=== PATIENT | female | born 1985 | race African-American/Black ===

== ENCOUNTER 2018-07-19 12:22 | Inpatient (IN) | payer OTHER ==
[2018-07-19 13:26] VITALS: BMI 36.5
--- NOTE | 2018-07-19 16:05 | HP ---
Admission ROS [facility] - [facility] Chief Complaint: i am here for rehab from heroin abused Allergies/Adverse Reactions: Allergies Allergy/AdvReac Type Severity Reaction Status Date / Time shellfish derived Allergy Severe Difficulty Verified 07/19/18 13:42 Breathing History of Present Illness: this 32 years old female with heroin abused,mmtp 40 mgs/day,last medicted today, history of htn history of schizoaffective disorder,ptsd,anxiety attempted suicidal,cutter 07/18/18 yesterday,seen in [place] last night nicotine dependence no significant of sobriety Exam Limitations: No Limitations - Ebola screening Have you traveled outside of the country in the last 21 days: No Have you had contact with anyone from an Ebola affected area: No Have you been sick,other than usual withdrawal symptoms: No Do you have a fever: No - Review of Systems Constitutional: No Symptoms Reported EENT: reports: No Symptoms Reported Respiratory: reports: No Symptoms reported Cardiac: reports: No Symptoms Reported GI: reports: No Symptoms Reported : reports: No Symptoms Reported Musculoskeletal: reports: No Symptoms Reported Neuro: reports: No Symptoms reported Endocrine: reports: No Symptoms Reported Hematology: reports: No Symptoms Reported Psychiatric: reports: No Sypmtoms Reported, Judgement Intact, Mood/Affect Appropiate, Orientated x3 Patient History - Patient Medical History Hx Asthma: No Hx Chronic Obstructive Pulmonary Disease (COPD): No Hx Cardiac Disorders: No Hx Hypertension: Yes (non compliance) Hx Seizures: Yes (09/2016) Hx Diabetes: No Hx Gastrointestinal Disorders: No Hx Genitourinary Disorders: No Hx Sexually Transmitted Disorders: No Hx Renal Disease (ESRD): No Hx Thyroid Disease: No Hx Human Immunodeficiency Virus (HIV): No (04/06 negative) Hx Hepatitis C: No Hx Depression: Yes Hx Suicide Attempt: Yes (07/18/2018 [facility]) Hx Schizophrenia: Yes Other Medical History: no suicidal,no homicidal - Patient Surgical History Past Surgical History: No Hx Neurologic Surgery: No Hx Cataract Extraction: No Hx Cardiac Surgery: No Hx Lung Surgery: No Hx Breast Surgery: No Hx Breast Biopsy: No Hx Abdominal Surgery: No Hx Appendectomy: No Hx Cholecystectomy: No Hx Genitourinary Surgery: No Hx Section: No Hx Orthopedic Surgery: No Anesthesia Reaction: No - PPD History Previous Implant?: Yes Documented Results: Negative w/o proof Implanted On Prior [facility] Admission?: No PPD to be Administered?: Yes - Reproductive History Patient is a Female of Child Bearing Age (11 -55 yrs old): Yes Last Menstrual Period: 07/11/18 Patient : No - Smoking Cessation Smoking history: Current every day smoker Have you smoked in the past 12 months: Yes Aproximately how many cigarettes per day: 10 Cigars Per Day: 0 Hx Chewing Tobacco Use: Yes (09/2017) Initiated information on smoking cessation: Yes 'Breaking Loose' booklet given: 07/19/18 - Substance & Tx. History Hx Alcohol Use: No Hx Substance Use: Yes Substance Use Type: Heroin Hx Substance Use Treatment: Yes (11/07) - Substances Abused Heroin Route: Inhalation Frequency: Daily Amount used: $60-$80 Age of first use: 29 Date of Last Use: 07/18/18 Family Disease History - Family Disease History Family Disease History: Other: Father (dsa,sober), Mother (dsa) Admission Physical Exam [facility] - Vital Signs Vital Signs: Vital Signs - 24 hr 07/19/18 13:24 Temperature 96.5 F L Pulse Rate 108 H Respiratory 20 Rate Blood Pressure 121/77 - Physical General Appearance: Yes: Within Normal Limits HEENTM: Yes: Normal ENT Inspection, TEENA, Pharynx Normal Respiratory: Yes: Lungs Clear, Normal Breath Sounds, No Respiratory Distress Neck: Yes: Within Normal Limits, Supple, Trachea in good position Breast: Yes: Within Normal Limits Cardiology: Yes: Within Normal Limits, Regular Rhythm, Regular Rate, S1, S2 Abdominal: Yes: Within Normal Limits, Normal Bowel Sounds, Non Tender, Flat, Soft Genitourinary: Yes: Within Normal Limits Back: Yes: Within Normal Limits Musculoskeletal: Yes: Within Normal Limits Extremities: Yes: Within Normal Limits Neurological: Yes: Within Normal Limits Integumentary: Yes: Within Normal Limits Lymphatic: Yes: Within Normal Limits - Diagnostic (1) Heroin abuse Current Visit: Yes Status: Acute (2) Methadone maintenance therapy patient Current Visit: Yes Status: Acute (3) Nicotine dependence Current Visit: Yes Status: Acute (4) Bipolar disorder Current Visit: Yes Status: Acute (5) Schizoaffective disorder Current Visit: Yes Status: Acute Cleared for Admission [facility] - Detox or Rehab Claeared for Rehab Admission: Yes (seenby psychiatrist) [facility] Breath Alcohol Content Breath Alcohol Content: 0 Urine Pregancy Test - Result Urine Test Results: Negative- NO Line Present Urine Drug Screen - Results Drug Screen Negative: No Urine Drug Screen Results: BZO-Benzodiazepines, MTD-Methadone, FEN-Fentanyl Inpatient Rehab Admission - Initial Determination Are CD services needed?: Yes Free of communicable disease: Yes Not in need of hospitalization: Yes - Rehab Admission Criteria Previous failed treatment: Yes Poor recovery environment: Yes Comorbidities: Yes Lacks judgement: No Patient is meeting Inpatient Rehab admission criteria:: Yes
[2018-07-19] MEDS ORDERED: LOPERAMIDE HCL 2 MG CAPSULE PO PRN (16:20)
[2018-07-19] MEDS ORDERED: ACETAMINOPHEN 325 MG TABLET (FP) PO PRN (16:20)
[2018-07-19] MEDS ORDERED: guaiFENesin/D-METHORPHAN HB 10 ML UNIT-DOSE CUPS PO PRN (16:20)
[2018-07-19] MEDS ORDERED: IBUPROFEN 400 MG TABLET (FP) PO PRN (16:20)
[2018-07-19] MEDS ORDERED: MENTHOL/PHENOL 1 EACH UD MM PRN (16:20)
[2018-07-19] MEDS ORDERED: hydrOXYzine PAMOATE 25 MG CAPSULE (FP) PO PRN (16:20)
[2018-07-19] MEDS ORDERED: P-EPHED 60MG/TRIPROLIDI 2.5MG TABLET PO PRN (16:20)
[2018-07-19] MEDS ORDERED: MAGNESIUM CITRATE 300 ML BOTTLE PO PRN (16:20)
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
[2018-07-19] MEDS ORDERED: hydrOXYzine PAMOATE 25 MG CAPSULE (FP) PO SCH (16:45)
[2018-07-19] MEDS ORDERED: hydrOXYzine PAMOATE 50 MG CAPSULE (FP) PO SCH (17:03)
[2018-07-19] MEDS ORDERED: TUBERCULIN PPD 5 TU/0.1ML VIAL ID ONE ×2 (17:47→23:02)
[2018-07-19] MEDS: NICOTINE 21 MG/24 HOURS TOPICAL PATCH TD SCH (18:25)
[2018-07-19] MEDS: hydrOXYzine PAMOATE 50 MG CAPSULE (FP) PO PRN (18:26)
[2018-07-19] MEDS: FERROUS SO4 325 MG TABLET (FP) PO SCH (18:26)
[2018-07-19] MEDS: risperiDONE 1 MG TABLET (FP) PO SCH (21:28)
[2018-07-19] MEDS: QUEtiapine FUMARATE 100 MG TABLET (FP) PO SCH (21:28)
[2018-07-19] MEDS: THIAMINE HCL 100 MG TABLET (FP) PO SCH (21:28)
[2018-07-19] MEDS: cloNIDine HCL 0.1 MG TABLET PO SCH (21:29)
[2018-07-19] MEDS: MELATONIN 5 MG TABLETS PO PRN (21:30)
[2018-07-19] MEDS ORDERED: PT OWN MED DRAWER 7, Y5N ONE (23:02)
[2018-07-20 01:28] LABS: URINE APPEARANCE CLEAR; URINE BILIRUBIN NEGATIVE (<2.0 mg/dL); URINE COLOR LTYELLOW; URINE GLUCOSE (UA) NEGATIVE (NEGATIVE); URINE KETONE NEGATIVE (NEGATIVE); URINE LEUK ESTERASE 1+ (NEGATIVE); URINE NITRITE NEGATIVE (NEGATIVE); URINE PROTEIN NEGATIVE (NEGATIVE); URINE UROBILINOGEN NEGATIVE mg/dL (0.2-1.0)
[2018-07-20 01:44] LABS: EPI CELLS RARE /HPF (FEW); URINE BACTERIA RARE /hpf (NONE SEEN); URINE MUCUS RARE
[2018-07-20] MEDS: cloNIDine HCL 0.1 MG TABLET PO SCH ×3 (06:33→21:13)
[2018-07-20] MEDS: METHADONE HCL 40 MG DISPERSABLE TABLET PO SCH (07:42)
[2018-07-20] MEDS: FERROUS SO4 325 MG TABLET (FP) PO SCH ×3 (07:43→17:45)
[2018-07-20] MEDS: risperiDONE 1 MG TABLET (FP) PO SCH ×2 (10:01→21:13)
[2018-07-20] MEDS: NICOTINE 21 MG/24 HOURS TOPICAL PATCH TD SCH (10:01)
[2018-07-20] MEDS: PRENATAL VITAMINS W/ FOLIC ACID TABLET (FP) PO SCH (10:01)
[2018-07-20] MEDS ORDERED: diphenhydrAMINE HCL 50 MG CAPSULE PO PRN (10:46)
[2018-07-20] MEDS: MAG HYDROX/AL HYDROX/SIMETH 30 ML UNIT-DOSE CUP PO PRN ×2 (11:53→19:36)
--- NOTE | 2018-07-20 12:07 | EKG ---
Test Reason : Blood Pressure : / mmHG Vent. Rate : 096 BPM Atrial Rate : 096 BPM P-R Int : 166 ms QRS Dur : 074 ms QT Int : 368 ms P-R-T Axes : 049 006 055 degrees QTc Int : 464 ms NORMAL SINUS RHYTHM POSSIBLE LEFT ATRIAL ENLARGEMENT NONSPECIFIC T WAVE ABNORMALITY ABNORMAL ECG NO PREVIOUS ECGS AVAILABLE Confirmed by MIRANDA HULL MD ([id number]) on 07/20/2018 12:07:12 PM Referred By: Confirmed By:MIRANDA HULL MD
[2018-07-20 15:55] LABS: HEMATOCRIT 34.9 % (32.4-45.2); HEMOGLOBIN 10.5 GM/dL (10.7-15.3); MCH 21.3 pg (25.7-33.7); MEAN CELL VOLUME 71.1 fl (80-96); PLATELET COUNT 212 K/MM3 (134-434); RBC 4.91 M/mm3 (3.60-5.2); RDW 21.4 % (11.6-15.6); WHITE BLOOD COUNT 5.2 K/mm3 (4.0-10.0)
[2018-07-20 16:19] LABS: ALBUMIN 3.8 g/dl (3.4-5.0); ALK PHOS 68 U/L (45-117); ANION GAP 9 MMOL/L (8-16); BILIRUBIN,TOTAL 0.1 mg/dL (0.2-1); BLOOD UREA NITROGEN 12 mg/dL (7-18); CALCIUM 9.1 mg/dL (8.5-10.1); CHLORIDE 102 mmol/L (98-107); CO2 26 mmol/L (21-32); CREATININE 0.7 mg/dL (0.55-1.3); GLUCOSE,RANDOM 145 mg/dL (74-106); SGOT/AST 19 U/L (15-37); SGPT/ALT 25 U/L (13-61); SODIUM 137 mmol/L (136-145)
[2018-07-20 16:56] LABS: SICKLE CELL SCREEN NEGATIVE (NEGATIVE)
[2018-07-20] MEDS: QUEtiapine FUMARATE 100 MG TABLET (FP) PO SCH (21:13)
[2018-07-20] MEDS: THIAMINE HCL 100 MG TABLET (FP) PO SCH (21:13)
[2018-07-20] MEDS: hydrOXYzine PAMOATE 50 MG CAPSULE (FP) PO PRN (21:14)
[2018-07-21] MEDS: METHADONE HCL 40 MG DISPERSABLE TABLET PO SCH (06:11)
[2018-07-21] MEDS: cloNIDine HCL 0.1 MG TABLET PO SCH ×3 (06:12→21:13)
[2018-07-21] MEDS: FERROUS SO4 325 MG TABLET (FP) PO SCH ×3 (07:50→17:30)
[2018-07-21] MEDS: NICOTINE 21 MG/24 HOURS TOPICAL PATCH TD SCH (09:45)
[2018-07-21] MEDS: PRENATAL VITAMINS W/ FOLIC ACID TABLET (FP) PO SCH (09:46)
[2018-07-21] MEDS: risperiDONE 1 MG TABLET (FP) PO SCH (09:46)
[2018-07-21] MEDS: MAGNESIUM HYDROX 2400MG/30ML ORAL SUSPENSION 30 ML CUP PO PRN (12:28)
[2018-07-21] MEDS ORDERED: HALOPERIDOL 5 MG TABLET (FP) PO ONE (13:46)
[2018-07-21] MEDS ORDERED: BENZTROPINE MESYLATE 1 MG TABLET (FP) PO ONE (13:46)
--- NOTE | 2018-07-21 15:12 | PN ---
Psychiatric Progress Note Vital Signs: Vital Signs Period Temp Pulse Resp BP Sys/Dhillon Pulse Ox Last 24 Hr 98.0 F 75-93 16-18 97-115/66-81 Date of Session: 07/21/18 Chief Complaint:: "i'm hearing voices." HPI: Patient was admitted to for opioid dependence. ROS: hypertension, seizures (09/2016) Current Medications: Active Medications Generic Name Dose Route Start Last Admin Trade Name Freq PRN Reason Stop Dose Admin Acetaminophen 650 mg 07/19/18 16:20 Tylenol - PO Q4H PRN FEVER Al Hydroxide/Mg Hydroxide 30 ml 07/19/18 16:20 07/20/18 19:36 Mylanta Oral Suspension - PO 30 ml Q6H PRN Administration DYSPEPSIA Clonidine 0.1 mg 07/19/18 22:00 07/21/18 14:00 Catapres - PO 0.1 mg TID ARON Administration Diphenhydramine HCl 50 mg 07/20/18 10:46 Benadryl - PO HS PRN INSOMNIA Eucalyptus/Menthol/Phenol/Sorbitol 1 each 07/19/18 16:20 Cepastat Lozenge - MM Q4H PRN SORE THROAT Ferrous Sulfate 325 mg 07/19/18 17:30 07/21/18 11:49 Feosol - PO 325 mg TIDCM ARON Administration Guaifenesin 10 ml 07/19/18 16:20 Robitussin Dm - PO Q6H PRN COUGH Hydroxyzine Pamoate 50 mg 07/19/18 17:22 07/20/18 21:14 Vistaril - PO 50 mg Q4H PRN Administration AGITATION/ANXIETY Ibuprofen 400 mg 07/19/18 16:20 Motrin - PO Q6H PRN Pain level 4-6 Loperamide HCl 4 mg 07/19/18 16:20 Imodium - PO Q6H PRN DIARRHEA Magnesium Citrate 300 ml 07/19/18 16:20 Citroma - PO Q48H PRN CONSTIPATION Magnesium Hydroxide 30 ml 07/19/18 16:20 07/21/18 12:28 Milk Of Magnesia - PO 30 ml DAILY PRN Administration CONSTIPATION Melatonin 5 mg 07/19/18 22:00 07/19/18 21:30 Melatonin PO 5 mg HS PRN Administration INSOMNIA Methadone HCl 40 mg 07/20/18 07:15 07/21/18 06:11 Dolophine - PO 40 mg DAILY@0600 ARON Administration Nicotine 21 mg 07/19/18 16:30 07/21/18 09:45 Nicoderm Patch - TD 21 mg DAILY ARON Administration Multivit/Folic Acid/Iron 1 tab 07/20/18 10:00 07/21/18 09:46 Vitamins (Sjr) - PO 1 tab DAILY ARON Administration Pseudoephedrine/Triprolidine 1 combo 07/19/18 16:20 Actifed - PO TID PRN NASAL CONGESTION Quetiapine Fumarate 100 mg 07/19/18 22:00 07/20/18 21:13 Seroquel - PO 100 mg HS ARON Administration Risperidone 1 mg 07/19/18 22:00 07/21/18 09:46 Risperdal - PO 1 mg BID ARON Administration Thiamine HCl 100 mg 07/19/18 22:00 07/20/18 21:13 Vitamin B1 - PO 100 mg HS ARON Administration Medication(s) Change(s): Yes. one time dose of haldol 5mg + cogentin 1mg ordered. Will increase risperdal dose to 2mg BID and will add cogentin 1mg qhs. Current Side Effect: No Lab tests ordered: No Lab tests reviewed: Yes Provider note:: Patient reports auditory hallucinations this morning which intensified into the afternoon. Patient stated, "the voices are talking to each other. I don't know what they are saying." Patient denies command auditory halluincations. No prn's available. One time dose of haldol 5mg and cogentin 1mg ordered. Medication effective. Will also increase risperdal 1mg BID to 2mg BID and add cogentin 1mg qhs. Patient in agreement with plan. Patient with a history of command auditory hallucinations. She recently had a suicide attempt on Jul 18, 2018 via overdose and attempting to cut herself. Both attempts were stopped by relatives and 911 was called. Patient currently denies suicidal and homicidal ideation. Total face to face time:: 35 Mental Status Exam - Mental Status Exam Alert and Oriented to: Time, Place, Person Cognitive Function: Good Patient Appearance: Well Groomed Mood: Euthymic Affect: Mood Congruent Patient Behavior: Appropriate, Cooperative Speech Pattern: Appropriate Voice Loudness: Normal Thought Process: Intact, Goal Oriented Hallucinations: Auditory (Voices talking to each other.) Suicidal Ideation: Denies Homicidal Ideation: Denies Insight/Judgement: Poor Sleep: Fair Appetite: Good, Fair Muscle strength/Tone: Normal Gait/Station: Normal Psychiatric Treatment Plan - Problem List (1) Opioid dependence Current Visit: Yes (2) Methadone maintenance therapy patient Current Visit: Yes (3) Schizoaffective disorder Current Visit: Yes (4) Nicotine dependence Current Visit: Yes (5) PTSD (post-traumatic stress disorder) Current Visit: Yes
[2018-07-21] MEDS: hydrOXYzine PAMOATE 50 MG CAPSULE (FP) PO PRN (18:00)
[2018-07-21] MEDS: MAG HYDROX/AL HYDROX/SIMETH 30 ML UNIT-DOSE CUP PO PRN (18:46)
[2018-07-21] MEDS ORDERED: PT OWN MED DRAWER 7, Y5N ONE (21:12)
[2018-07-21] MEDS: THIAMINE HCL 100 MG TABLET (FP) PO SCH (21:13)
[2018-07-21] MEDS: QUEtiapine FUMARATE 100 MG TABLET (FP) PO SCH (21:13)
[2018-07-21] MEDS: MELATONIN 5 MG TABLETS PO PRN (21:13)
[2018-07-21] MEDS: BENZTROPINE MESYLATE 1 MG TABLET (FP) PO SCH (21:15)
[2018-07-21] MEDS: risperiDONE 2 MG TABLET PO SCH (21:15)
[2018-07-22] MEDS: cloNIDine HCL 0.1 MG TABLET PO SCH ×3 (06:27→21:14)
[2018-07-22] MEDS: METHADONE HCL 40 MG DISPERSABLE TABLET PO SCH (06:27)
[2018-07-22] MEDS: FERROUS SO4 325 MG TABLET (FP) PO SCH ×3 (07:05→17:51)
[2018-07-22] MEDS: NICOTINE 21 MG/24 HOURS TOPICAL PATCH TD SCH (09:52)
[2018-07-22] MEDS: risperiDONE 2 MG TABLET PO SCH ×2 (09:52→21:12)
[2018-07-22] MEDS: PRENATAL VITAMINS W/ FOLIC ACID TABLET (FP) PO SCH (09:52)
[2018-07-22] MEDS ORDERED: PT OWN MED DRAWER 7, Y5N ONE (11:29)
[2018-07-22] MEDS: MAG HYDROX/AL HYDROX/SIMETH 30 ML UNIT-DOSE CUP PO PRN (14:11)
[2018-07-22] MEDS: hydrOXYzine PAMOATE 50 MG CAPSULE (FP) PO PRN (14:21)
[2018-07-22] MEDS: HALOPERIDOL 5 MG TABLET (FP) PO PRN (17:50)
[2018-07-22] MEDS: QUEtiapine FUMARATE 100 MG TABLET (FP) PO SCH (21:12)
[2018-07-22] MEDS: MELATONIN 5 MG TABLETS PO PRN (21:12)
[2018-07-22] MEDS: BENZTROPINE MESYLATE 1 MG TABLET (FP) PO SCH (21:12)
[2018-07-22] MEDS: GABAPENTIN 300 MG CAPSULE (FP) PO SCH (21:15)
[2018-07-22] MEDS: THIAMINE HCL 100 MG TABLET (FP) PO SCH (21:16)
[2018-07-23] MEDS: cloNIDine HCL 0.1 MG TABLET PO SCH ×3 (06:44→22:28)
[2018-07-23] MEDS: METHADONE HCL 40 MG DISPERSABLE TABLET PO SCH (06:44)
[2018-07-23] MEDS: GABAPENTIN 300 MG CAPSULE (FP) PO SCH ×3 (06:45→21:04)
[2018-07-23] MEDS: HALOPERIDOL 5 MG TABLET (FP) PO PRN (06:46)
[2018-07-23] MEDS: FERROUS SO4 325 MG TABLET (FP) PO SCH ×3 (07:46→18:04)
[2018-07-23] MEDS ORDERED: PT OWN MED DRAWER 7, Y5N ONE (08:10)
[2018-07-23] MEDS: NICOTINE 21 MG/24 HOURS TOPICAL PATCH TD SCH (09:47)
[2018-07-23] MEDS: risperiDONE 2 MG TABLET PO SCH (09:48)
[2018-07-23] MEDS: PRENATAL VITAMINS W/ FOLIC ACID TABLET (FP) PO SCH (09:48)
[2018-07-23] MEDS: hydrOXYzine PAMOATE 50 MG CAPSULE (FP) PO PRN ×3 (11:25→21:45)
[2018-07-23] MEDS: MAG HYDROX/AL HYDROX/SIMETH 30 ML UNIT-DOSE CUP PO PRN (13:05)
--- NOTE | 2018-07-23 17:01 | PN ---
Psychiatric Progress Note Vital Signs: Vital Signs Period Temp Pulse Resp BP Sys/Dhillon Pulse Ox Last 24 Hr 97.9 F 76-101 16-18 96-108/60-77 Date of Session: 07/23/18 Chief Complaint:: " I was hearing voices this morning ". HPI: Called to re-evaluate this patient, admitted to [address] for rehabilitation to address opioid dependence, because of complaint of auditory hallucinations (voices conversing). Patient is diagnosed with Schizoaffective Disorder. Recently discharged from [facility] ([facility] ROS: Alert and fully oriented. Cooperative. Ambulatory. No somatic complaints offered. Current Medications: Active Medications Generic Name Dose Route Start Last Admin Trade Name Freq PRN Reason Stop Dose Admin Acetaminophen 650 mg 07/19/18 16:20 Tylenol - PO Q4H PRN FEVER Al Hydroxide/Mg Hydroxide 30 ml 07/19/18 16:20 07/23/18 13:05 Mylanta Oral Suspension - PO 30 ml Q6H PRN Administration DYSPEPSIA Benztropine Mesylate 1 mg 07/21/18 22:00 07/22/18 21:12 Cogentin - PO 1 mg HS ARON Administration Clonidine 0.1 mg 07/19/18 22:00 07/23/18 13:05 Catapres - PO 0.1 mg TID ARON Administration Diphenhydramine HCl 50 mg 07/20/18 10:46 07/22/18 21:14 Benadryl - PO 50 mg HS PRN Administration INSOMNIA Eucalyptus/Menthol/Phenol/Sorbitol 1 each 07/19/18 16:20 Cepastat Lozenge - MM Q4H PRN SORE THROAT Ferrous Sulfate 325 mg 07/19/18 17:30 07/23/18 11:25 Feosol - PO 325 mg TIDCM ARON Administration Gabapentin 300 mg 07/22/18 22:00 07/23/18 13:05 Neurontin - PO 300 mg TID ARON Administration Guaifenesin 10 ml 07/19/18 16:20 Robitussin Dm - PO Q6H PRN COUGH Haloperidol 5 mg 07/22/18 17:01 07/23/18 06:46 Haldol - PO 5 mg BID PRN Administration AGITATION Hydroxyzine Pamoate 50 mg 07/19/18 17:22 07/23/18 11:25 Vistaril - PO 50 mg Q4H PRN Administration AGITATION/ANXIETY Ibuprofen 400 mg 07/19/18 16:20 Motrin - PO Q6H PRN Pain level 4-6 Loperamide HCl 4 mg 07/19/18 16:20 Imodium - PO Q6H PRN DIARRHEA Magnesium Citrate 300 ml 07/19/18 16:20 Citroma - PO Q48H PRN CONSTIPATION Magnesium Hydroxide 30 ml 07/19/18 16:20 07/21/18 12:28 Milk Of Magnesia - PO 30 ml DAILY PRN Administration CONSTIPATION Melatonin 5 mg 07/19/18 22:00 07/22/18 21:12 Melatonin PO 5 mg HS PRN Administration INSOMNIA Methadone HCl 40 mg 07/20/18 07:15 07/23/18 06:44 Dolophine - PO 40 mg DAILY@0600 ARON Administration Nicotine 21 mg 07/19/18 16:30 07/23/18 09:47 Nicoderm Patch - TD 21 mg DAILY ARON Administration Multivit/Folic Acid/Iron 1 tab 07/20/18 10:00 07/23/18 09:48 Vitamins (Sjr) - PO 1 tab DAILY ARON Administration Pseudoephedrine/Triprolidine 1 combo 07/19/18 16:20 Actifed - PO TID PRN NASAL CONGESTION Quetiapine Fumarate 100 mg 07/19/18 22:00 07/22/18 21:12 Seroquel - PO 100 mg HS ARON Administration Risperidone 2 mg 07/21/18 22:00 07/23/18 09:48 Risperdal - PO 2 mg BID ARON Administration Thiamine HCl 100 mg 07/19/18 22:00 07/22/18 21:16 Vitamin B1 - PO 100 mg HS ARON Administration Medication(s) Change(s): Patient indicates her preference for haloperidol. She insists that " this is the medication that helps me with the voices ". Haldol 5 mg po + cogentin 0.5 mg po (one dose) ordered. Risperdal is discontinued. Seroquel is reduced to 50 mg/hs (patient declares that seroquel is effective for the management of her insomnia). Will continue with haldol 5 mg po tid. Side effects/benefits discussed with the patient. Made aware of risk of abnormal involuntary movements (akathisia, dystonia, tardive dyskinesia) and neuroleptic malignant syndrome. Patient endorses history of adequate response to haloperidol + good tolerability. Anticholinergic adverse effects are also discussed. Ms Tran is in agreement with this plan of care. Consent (verbal) given. Will follow. Current Side Effect: No Lab tests ordered: No Lab tests reviewed: Yes Provider note:: Chart reviewed. psychotherapist counselor Sarah note : appreciated. Patient is interviewed. Ms Tran reports intermittent auditory halllucinations (derogatory voices without violent content) since her admission to [facility]. Denies paranoid ideas or suicidal ideation, intent or plan. Patient is visible on the unit. Ambulatory, cooperative with interviewer. Coherent and goal-directed. Eager to take medications. Treatment plan is discussed with the patient. Refer to medications section for details. Ms Tran does NOT meet the criteria for admission to an inpatient psychiatric unit. Antipsychotic medication is adjusted as clinically indicated and the patient may remain at [facility] for rehabilitation. Discussed with nurse on duty. Total face to face time:: 35 Mental Status Exam - Mental Status Exam Alert and Oriented to: Time, Place, Person Cognitive Function: Good Patient Appearance: Well Groomed (obese) Mood: Anxious, Apprehensive Affect: Appropriate, Normal Range Patient Behavior: Cooperative Speech Pattern: Clear, Appropriate Voice Loudness: Normal Thought Process: Goal Oriented Thought Disorder: Not Present Hallucinations: Auditory (voices berating her) Suicidal Ideation: Denies Homicidal Ideation: Denies Insight/Judgement: Fair Sleep: Well (on seroquel) Appetite: Good Muscle strength/Tone: Normal Gait/Station: Normal Psychiatric Treatment Plan - Problem List (1) Schizoaffective disorder Current Visit: Yes Comment: . (2) Opioid dependence on agonist therapy Current Visit: Yes Comment: . (3) Opioid dependence Current Visit: Yes Comment: . (4) Nicotine dependence Current Visit: Yes Comment: . (5) Insomnia Current Visit: Yes Comment: .
[2018-07-23] MEDS ORDERED: HALOPERIDOL 5 MG TABLET (FP) PO ONE (17:13)
[2018-07-23] MEDS ORDERED: BENZTROPINE MESYLATE 0.5 MG TABLET (FP) PO ONE (17:14)
[2018-07-23 19:24] LABS: URINE APPEARANCE CLEAR; URINE BILIRUBIN NEGATIVE (<2.0 mg/dL); URINE COLOR YELLOW; URINE GLUCOSE (UA) NEGATIVE (NEGATIVE); URINE KETONE NEGATIVE (NEGATIVE); URINE LEUK ESTERASE NEGATIVE (NEGATIVE); URINE NITRITE NEGATIVE (NEGATIVE); URINE PROTEIN NEGATIVE (NEGATIVE); URINE UROBILINOGEN NEGATIVE mg/dL (0.2-1.0)
[2018-07-23 19:33] LABS: EPI CELLS RARE /HPF (FEW); URINE MUCUS RARE
[2018-07-23] MEDS: THIAMINE HCL 100 MG TABLET (FP) PO SCH (21:05)
[2018-07-23] MEDS: BENZTROPINE MESYLATE 1 MG TABLET (FP) PO SCH (21:05)
[2018-07-23] MEDS: QUEtiapine FUMARATE 50 MG TABLET PO SCH (21:05)
[2018-07-23] MEDS ORDERED: HALOPERIDOL 5 MG TABLET (FP) PO SCH (22:00)
[2018-07-24] MEDS: METHADONE HCL 40 MG DISPERSABLE TABLET PO SCH (06:22)
[2018-07-24] MEDS: cloNIDine HCL 0.1 MG TABLET PO SCH ×3 (06:22→22:59)
[2018-07-24] MEDS: GABAPENTIN 300 MG CAPSULE (FP) PO SCH ×3 (06:22→21:05)
[2018-07-24] MEDS: FERROUS SO4 325 MG TABLET (FP) PO SCH ×3 (07:00→18:05)
[2018-07-24] MEDS: NICOTINE 21 MG/24 HOURS TOPICAL PATCH TD SCH (09:41)
[2018-07-24] MEDS: hydrOXYzine PAMOATE 50 MG CAPSULE (FP) PO PRN ×2 (09:42→16:57)
[2018-07-24] MEDS: PRENATAL VITAMINS W/ FOLIC ACID TABLET (FP) PO SCH (09:42)
[2018-07-24] MEDS: MAG HYDROX/AL HYDROX/SIMETH 30 ML UNIT-DOSE CUP PO PRN ×2 (09:43→16:57)
[2018-07-24] MEDS: BENZTROPINE MESYLATE 1 MG TABLET (FP) PO SCH ×2 (09:45→21:05)
[2018-07-24] MEDS ORDERED: BENZTROPINE MESYLATE 0.5 MG TABLET (FP) PO SCH (10:00)
[2018-07-24] MEDS ORDERED: PT OWN MED DRAWER 7, Y5N ONE ×2 (10:12→12:10)
[2018-07-24] MEDS: HALOPERIDOL 5 MG TABLET (FP) PO SCH ×2 (13:01→21:06)
[2018-07-24] MEDS: THIAMINE HCL 100 MG TABLET (FP) PO SCH (21:05)
[2018-07-24] MEDS: QUEtiapine FUMARATE 50 MG TABLET PO SCH (21:05)
[2018-07-25] MEDS: METHADONE HCL 40 MG DISPERSABLE TABLET PO SCH (06:05)
[2018-07-25] MEDS: HALOPERIDOL 5 MG TABLET (FP) PO SCH ×3 (06:06→21:13)
[2018-07-25] MEDS: cloNIDine HCL 0.1 MG TABLET PO SCH ×3 (06:06→21:13)
[2018-07-25] MEDS: GABAPENTIN 300 MG CAPSULE (FP) PO SCH ×3 (06:06→21:13)
[2018-07-25] MEDS: FERROUS SO4 325 MG TABLET (FP) PO SCH ×3 (07:33→17:40)
[2018-07-25] MEDS: MAG HYDROX/AL HYDROX/SIMETH 30 ML UNIT-DOSE CUP PO PRN ×2 (07:55→14:29)
[2018-07-25] MEDS: NICOTINE 21 MG/24 HOURS TOPICAL PATCH TD SCH (09:40)
[2018-07-25] MEDS: PRENATAL VITAMINS W/ FOLIC ACID TABLET (FP) PO SCH (09:40)
[2018-07-25] MEDS: BENZTROPINE MESYLATE 1 MG TABLET (FP) PO SCH ×2 (09:40→21:13)
[2018-07-25] MEDS: hydrOXYzine PAMOATE 50 MG CAPSULE (FP) PO PRN ×2 (09:42→13:48)
--- NOTE | 2018-07-25 16:59 | PN ---
[facility] Progress Note Note: Patient reports that she is not able to fall asleep since her Seroquel dose has been decreased.Properties of Seroquel has been discussed with the patient including side effects,benefits,dose adjustment.Seroquel will be adjusted to 100 mg p hs.
[2018-07-25] MEDS: THIAMINE HCL 100 MG TABLET (FP) PO SCH (21:13)
[2018-07-25] MEDS: QUEtiapine FUMARATE 100 MG TABLET (FP) PO SCH (21:15)
[2018-07-26] MEDS: HALOPERIDOL 5 MG TABLET (FP) PO SCH ×3 (05:59→21:27)
[2018-07-26] MEDS: cloNIDine HCL 0.1 MG TABLET PO SCH ×3 (05:59→21:27)
[2018-07-26] MEDS: GABAPENTIN 300 MG CAPSULE (FP) PO SCH ×3 (05:59→21:27)
[2018-07-26] MEDS: METHADONE HCL 40 MG DISPERSABLE TABLET PO SCH (06:00)
[2018-07-26] MEDS: FERROUS SO4 325 MG TABLET (FP) PO SCH ×3 (08:34→17:25)
[2018-07-26] MEDS: NICOTINE 21 MG/24 HOURS TOPICAL PATCH TD SCH (10:17)
[2018-07-26] MEDS: PRENATAL VITAMINS W/ FOLIC ACID TABLET (FP) PO SCH (10:17)
[2018-07-26] MEDS: BENZTROPINE MESYLATE 1 MG TABLET (FP) PO SCH ×2 (10:18→21:27)
[2018-07-26] MEDS: hydrOXYzine PAMOATE 50 MG CAPSULE (FP) PO PRN ×2 (10:20→18:53)
[2018-07-26] MEDS: MAG HYDROX/AL HYDROX/SIMETH 30 ML UNIT-DOSE CUP PO PRN ×2 (10:20→19:54)
[2018-07-26] MEDS: QUEtiapine FUMARATE 100 MG TABLET (FP) PO SCH (21:27)
[2018-07-26] MEDS: THIAMINE HCL 100 MG TABLET (FP) PO SCH (21:27)
[2018-07-27] MEDS: cloNIDine HCL 0.1 MG TABLET PO SCH ×3 (06:13→21:15)
[2018-07-27] MEDS: HALOPERIDOL 5 MG TABLET (FP) PO SCH ×3 (06:13→21:15)
[2018-07-27] MEDS: GABAPENTIN 300 MG CAPSULE (FP) PO SCH ×3 (06:13→21:15)
[2018-07-27] MEDS: METHADONE HCL 40 MG DISPERSABLE TABLET PO SCH (06:14)
[2018-07-27] MEDS: FERROUS SO4 325 MG TABLET (FP) PO SCH ×3 (07:31→17:14)
[2018-07-27] MEDS: PRENATAL VITAMINS W/ FOLIC ACID TABLET (FP) PO SCH (10:41)
[2018-07-27] MEDS: BENZTROPINE MESYLATE 1 MG TABLET (FP) PO SCH ×2 (10:42→21:15)
[2018-07-27] MEDS: NICOTINE 21 MG/24 HOURS TOPICAL PATCH TD SCH (10:42)
[2018-07-27] MEDS ORDERED: PT OWN MED DRAWER 7, Y5N ONE (10:48)
[2018-07-27] MEDS: MAG HYDROX/AL HYDROX/SIMETH 30 ML UNIT-DOSE CUP PO PRN ×2 (12:32→19:00)
[2018-07-27] MEDS: hydrOXYzine PAMOATE 50 MG CAPSULE (FP) PO PRN (15:01)
[2018-07-27] MEDS: THIAMINE HCL 100 MG TABLET (FP) PO SCH (21:15)
[2018-07-27] MEDS: QUEtiapine FUMARATE 100 MG TABLET (FP) PO SCH (21:15)
[2018-07-28] MEDS: GABAPENTIN 300 MG CAPSULE (FP) PO SCH ×3 (06:25→21:24)
[2018-07-28] MEDS: HALOPERIDOL 5 MG TABLET (FP) PO SCH ×3 (06:26→21:24)
[2018-07-28] MEDS: cloNIDine HCL 0.1 MG TABLET PO SCH ×3 (06:27→21:24)
[2018-07-28] MEDS: METHADONE HCL 40 MG DISPERSABLE TABLET PO SCH (06:27)
[2018-07-28] MEDS: MAG HYDROX/AL HYDROX/SIMETH 30 ML UNIT-DOSE CUP PO PRN (07:30)
[2018-07-28] MEDS: FERROUS SO4 325 MG TABLET (FP) PO SCH ×3 (07:31→17:25)
[2018-07-28] MEDS: PRENATAL VITAMINS W/ FOLIC ACID TABLET (FP) PO SCH (10:07)
[2018-07-28] MEDS: BENZTROPINE MESYLATE 1 MG TABLET (FP) PO SCH ×2 (10:07→21:24)
[2018-07-28] MEDS: NICOTINE 21 MG/24 HOURS TOPICAL PATCH TD SCH (10:07)
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
[2018-07-28] MEDS: PANTOPRAZOLE 40 MG TABLET (FP) PO SCH (13:05)
[2018-07-28] MEDS: QUEtiapine FUMARATE 100 MG TABLET (FP) PO SCH (21:24)
[2018-07-28] MEDS: THIAMINE HCL 100 MG TABLET (FP) PO SCH (21:24)
[2018-07-28] MEDS: MELATONIN 5 MG TABLETS PO PRN (21:25)
[2018-07-29] MEDS: METHADONE HCL 40 MG DISPERSABLE TABLET PO SCH (06:22)
[2018-07-29] MEDS: HALOPERIDOL 5 MG TABLET (FP) PO SCH ×3 (06:23→21:04)
[2018-07-29] MEDS: cloNIDine HCL 0.1 MG TABLET PO SCH ×3 (06:23→21:04)
[2018-07-29] MEDS: GABAPENTIN 300 MG CAPSULE (FP) PO SCH ×3 (06:23→21:04)
[2018-07-29] MEDS: FERROUS SO4 325 MG TABLET (FP) PO SCH ×3 (07:26→16:55)
[2018-07-29] MEDS: PRENATAL VITAMINS W/ FOLIC ACID TABLET (FP) PO SCH (09:34)
[2018-07-29] MEDS: PANTOPRAZOLE 40 MG TABLET (FP) PO SCH (09:34)
[2018-07-29] MEDS: NICOTINE 21 MG/24 HOURS TOPICAL PATCH TD SCH (09:35)
[2018-07-29] MEDS: BENZTROPINE MESYLATE 1 MG TABLET (FP) PO SCH ×2 (09:35→21:04)
--- NOTE | 2018-07-29 10:22 | PN ---
[facility] Progress Note Note: Pt states she has a "boil" under axilla and also skin change of breast area. Says she has a h/o of "boils" of axilla- was treated with antibiotics in the past Vital Signs - 24 hr 07/28/18 07/28/18 07/29/18 13:10 22:44 00:30 Temperature Pulse Rate 84 76 Respiratory 17 Rate Blood Pressure 100/70 105/73 07/29/18 07/29/18 03:30 06:46 Temperature 97.8 F Pulse Rate 100 H Respiratory 17 16 Rate Blood Pressure 103/64 PE- healed scar L axilla, small ~ 1cm palpable area under skin, no redness, swelling or edema breasts: r and L, small areas of hypopigmentation- chronically present- not new a/p: warm compresses to L axilla, no indication for antibiotics at the present time, Hypopigmentation- chronic- no need for treatment now- pt will f/u with PCP/derm at discharge
[2018-07-29] MEDS: hydrOXYzine PAMOATE 50 MG CAPSULE (FP) PO PRN ×2 (16:55→21:05)
[2018-07-29] MEDS: QUEtiapine FUMARATE 100 MG TABLET (FP) PO SCH (21:04)
[2018-07-29] MEDS: THIAMINE HCL 100 MG TABLET (FP) PO SCH (21:04)
[2018-07-30] MEDS: METHADONE HCL 40 MG DISPERSABLE TABLET PO SCH (06:29)
[2018-07-30] MEDS: cloNIDine HCL 0.1 MG TABLET PO SCH ×3 (06:29→21:09)
[2018-07-30] MEDS: HALOPERIDOL 5 MG TABLET (FP) PO SCH ×3 (06:29→21:09)
[2018-07-30] MEDS: GABAPENTIN 300 MG CAPSULE (FP) PO SCH ×3 (06:30→21:09)
[2018-07-30] MEDS: FERROUS SO4 325 MG TABLET (FP) PO SCH ×3 (07:07→17:35)
[2018-07-30] MEDS: PANTOPRAZOLE 40 MG TABLET (FP) PO SCH (10:07)
[2018-07-30] MEDS: PRENATAL VITAMINS W/ FOLIC ACID TABLET (FP) PO SCH (10:07)
[2018-07-30] MEDS: BENZTROPINE MESYLATE 1 MG TABLET (FP) PO SCH ×2 (10:07→21:09)
[2018-07-30] MEDS: NICOTINE 21 MG/24 HOURS TOPICAL PATCH TD SCH (10:07)
--- NOTE | 2018-07-30 13:27 | PN ---
[facility] Progress Note Note: PT C/O LEFT UPPER EYELID PAIN WITH SWELLING. Laboratory Tests 07/19/18 07/20/18 07/20/18 22:52 08:30 08:30 WBC 5.2 RBC 4.91 Hgb 10.5 L Hct 34.9 MCV 71.1 L MCH 21.3 L MCHC 30.0 L RDW 21.4 H Plt Count 212 MPV 12.0 H Sickle Cell Screen Negative Sodium 137 Potassium 4.0 Chloride 102 Carbon Dioxide 26 Anion Gap 9 BUN 12 Creatinine 0.7 Creat Clearance w eGFR > 60 POC Glucometer Random Glucose 145 H Calcium 9.1 Total Bilirubin 0.1 L AST 19 ALT 25 Alkaline Phosphatase 68 Total Protein 7.0 Albumin 3.8 Urine Color Ltyellow Urine Appearance Clear Urine pH 6.0 Ur Specific [place] 1.014 Urine Protein Negative Urine Glucose (UA) Negative Urine Ketones Negative Urine Blood Negative Urine Nitrite Negative Urine Bilirubin Negative Urine Urobilinogen Negative Ur Leukocyte Esterase 1+ H Urine WBC (Auto) 2 Urine RBC (Auto) None Ur Epithelial Cells Rare Urine Bacteria Rare Urine Mucus Rare RPR Titer 07/20/18 07/23/18 07/23/18 08:30 06:43 14:39 WBC RBC Hgb Hct MCV MCH MCHC RDW Plt Count MPV Sickle Cell Screen Sodium Potassium Chloride Carbon Dioxide Anion Gap BUN Creatinine Creat Clearance w eGFR POC Glucometer 90 Random Glucose Calcium Total Bilirubin AST ALT Alkaline Phosphatase Total Protein Albumin Urine Color Yellow Urine Appearance Clear Urine pH 6.0 Ur Specific [place] 1.017 Urine Protein Negative Urine Glucose (UA) Negative Urine Ketones Negative Urine Blood 3+ H Urine Nitrite Negative Urine Bilirubin Negative Urine Urobilinogen Negative Ur Leukocyte Esterase Negative Urine WBC (Auto) 1 Urine RBC (Auto) 13 Ur Epithelial Cells Rare Urine Bacteria Urine Mucus Rare RPR Titer Nonreactive 07/24/18 07/25/18 06:26 06:05 WBC RBC Hgb Hct MCV MCH MCHC RDW Plt Count MPV Sickle Cell Screen Sodium Potassium Chloride Carbon Dioxide Anion Gap BUN Creatinine Creat Clearance w eGFR POC Glucometer 103 97 Random Glucose Calcium Total Bilirubin AST ALT Alkaline Phosphatase Total Protein Albumin Urine Color Urine Appearance Urine pH Ur Specific [place] Urine Protein Urine Glucose (UA) Urine Ketones Urine Blood Urine Nitrite Urine Bilirubin Urine Urobilinogen Ur Leukocyte Esterase Urine WBC (Auto) Urine RBC (Auto) Ur Epithelial Cells Urine Bacteria Urine Mucus RPR Titer Vital Signs 07/30/18 06:42 Temperature 97.7 F Pulse Rate 69 Respiratory 17 Rate Blood Pressure 105/73 EYE;SLIGHT REDNESS AND SWELLING OF UPPER EYELID IMPRESSION:FOLICULITIS PLAN;WARM COMPRESS TO LEFT EYELID BACITRACIN OINTMENT DIRECTED.
[2018-07-30] MEDS: BACITRACIN 0.9 GM PACKET TP SCH ×2 (14:18→21:11)
[2018-07-30] MEDS: THIAMINE HCL 100 MG TABLET (FP) PO SCH (21:08)
[2018-07-30] MEDS: QUEtiapine FUMARATE 100 MG TABLET (FP) PO SCH (21:09)
[2018-07-30] MEDS: hydrOXYzine PAMOATE 50 MG CAPSULE (FP) PO PRN (21:11)
[2018-07-31] MEDS: HALOPERIDOL 5 MG TABLET (FP) PO SCH ×3 (06:15→21:31)
[2018-07-31] MEDS: METHADONE HCL 40 MG DISPERSABLE TABLET PO SCH (06:15)
[2018-07-31] MEDS: cloNIDine HCL 0.1 MG TABLET PO SCH ×3 (06:15→21:31)
[2018-07-31] MEDS: GABAPENTIN 300 MG CAPSULE (FP) PO SCH ×3 (06:15→21:31)
[2018-07-31] MEDS: FERROUS SO4 325 MG TABLET (FP) PO SCH ×3 (07:26→17:30)
[2018-07-31] MEDS: NICOTINE 21 MG/24 HOURS TOPICAL PATCH TD SCH (09:51)
[2018-07-31] MEDS: BENZTROPINE MESYLATE 1 MG TABLET (FP) PO SCH ×2 (09:51→21:33)
[2018-07-31] MEDS: PRENATAL VITAMINS W/ FOLIC ACID TABLET (FP) PO SCH (09:51)
[2018-07-31] MEDS: BACITRACIN 0.9 GM PACKET TP SCH ×2 (09:51→21:31)
[2018-07-31] MEDS: PANTOPRAZOLE 40 MG TABLET (FP) PO SCH (09:52)
[2018-07-31] MEDS: hydrOXYzine PAMOATE 50 MG CAPSULE (FP) PO PRN (09:53)
[2018-07-31] MEDS: MAG HYDROX/AL HYDROX/SIMETH 30 ML UNIT-DOSE CUP PO PRN (13:58)
[2018-07-31] MEDS: QUEtiapine FUMARATE 100 MG TABLET (FP) PO SCH (21:31)
[2018-07-31] MEDS: THIAMINE HCL 100 MG TABLET (FP) PO SCH (21:31)
[2018-08-01] MEDS: METHADONE HCL 40 MG DISPERSABLE TABLET PO SCH (06:40)
[2018-08-01] MEDS: GABAPENTIN 300 MG CAPSULE (FP) PO SCH ×3 (06:41→21:24)
[2018-08-01] MEDS: cloNIDine HCL 0.1 MG TABLET PO SCH ×3 (06:41→21:24)
[2018-08-01] MEDS: HALOPERIDOL 5 MG TABLET (FP) PO SCH ×3 (06:41→21:24)
[2018-08-01] MEDS: FERROUS SO4 325 MG TABLET (FP) PO SCH ×3 (07:21→16:55)
[2018-08-01] MEDS: BACITRACIN 0.9 GM PACKET TP SCH ×2 (10:12→21:24)
[2018-08-01] MEDS: BENZTROPINE MESYLATE 1 MG TABLET (FP) PO SCH ×2 (10:12→21:24)
[2018-08-01] MEDS: PRENATAL VITAMINS W/ FOLIC ACID TABLET (FP) PO SCH (10:13)
[2018-08-01] MEDS: NICOTINE 21 MG/24 HOURS TOPICAL PATCH TD SCH (10:13)
[2018-08-01] MEDS: PANTOPRAZOLE 40 MG TABLET (FP) PO SCH (10:13)
[2018-08-01] MEDS ORDERED: PT OWN MED DRAWER 7, Y5N ONE ×2 (10:42→22:04)
[2018-08-01] MEDS: hydrOXYzine PAMOATE 50 MG CAPSULE (FP) PO PRN ×2 (16:55→21:25)
[2018-08-01] MEDS: QUEtiapine FUMARATE 100 MG TABLET (FP) PO SCH (21:24)
[2018-08-01] MEDS: THIAMINE HCL 100 MG TABLET (FP) PO SCH (21:24)
[2018-08-02] MEDS: METHADONE HCL 40 MG DISPERSABLE TABLET PO SCH (06:15)
[2018-08-02] MEDS: HALOPERIDOL 5 MG TABLET (FP) PO SCH ×3 (06:19→21:03)
[2018-08-02] MEDS: GABAPENTIN 300 MG CAPSULE (FP) PO SCH ×3 (06:19→21:03)
[2018-08-02] MEDS: cloNIDine HCL 0.1 MG TABLET PO SCH ×3 (06:19→23:03)
[2018-08-02] MEDS: FERROUS SO4 325 MG TABLET (FP) PO SCH ×3 (07:03→16:52)
[2018-08-02] MEDS: BACITRACIN 0.9 GM PACKET TP SCH ×2 (10:08→21:03)
[2018-08-02] MEDS: PRENATAL VITAMINS W/ FOLIC ACID TABLET (FP) PO SCH (10:08)
[2018-08-02] MEDS: NICOTINE 21 MG/24 HOURS TOPICAL PATCH TD SCH (10:08)
[2018-08-02] MEDS: BENZTROPINE MESYLATE 1 MG TABLET (FP) PO SCH ×2 (10:09→21:03)
[2018-08-02] MEDS: PANTOPRAZOLE 40 MG TABLET (FP) PO SCH (10:09)
[2018-08-02] MEDS: MAG HYDROX/AL HYDROX/SIMETH 30 ML UNIT-DOSE CUP PO PRN (20:06)
[2018-08-02] MEDS: THIAMINE HCL 100 MG TABLET (FP) PO SCH (21:03)
[2018-08-02] MEDS: QUEtiapine FUMARATE 100 MG TABLET (FP) PO SCH (21:03)
[2018-08-02] MEDS: hydrOXYzine PAMOATE 50 MG CAPSULE (FP) PO PRN (21:05)
[2018-08-03] MEDS: GABAPENTIN 300 MG CAPSULE (FP) PO SCH ×3 (06:17→21:03)
[2018-08-03] MEDS: HALOPERIDOL 5 MG TABLET (FP) PO SCH ×3 (06:17→21:03)
[2018-08-03] MEDS: cloNIDine HCL 0.1 MG TABLET PO SCH ×3 (06:17→21:03)
[2018-08-03] MEDS: METHADONE HCL 40 MG DISPERSABLE TABLET PO SCH (06:18)
[2018-08-03] MEDS: FERROUS SO4 325 MG TABLET (FP) PO SCH ×3 (08:00→17:35)
[2018-08-03] MEDS: BENZTROPINE MESYLATE 1 MG TABLET (FP) PO SCH ×2 (09:11→21:03)
[2018-08-03] MEDS: PANTOPRAZOLE 40 MG TABLET (FP) PO SCH (09:13)
[2018-08-03] MEDS: PRENATAL VITAMINS W/ FOLIC ACID TABLET (FP) PO SCH (09:13)
[2018-08-03] MEDS: NICOTINE 21 MG/24 HOURS TOPICAL PATCH TD SCH (09:13)
[2018-08-03] MEDS: BACITRACIN 0.9 GM PACKET TP SCH ×2 (09:14→21:02)
[2018-08-03] MEDS: THIAMINE HCL 100 MG TABLET (FP) PO SCH (21:03)
[2018-08-03] MEDS: QUEtiapine FUMARATE 100 MG TABLET (FP) PO SCH (21:03)
[2018-08-03] MEDS: hydrOXYzine PAMOATE 50 MG CAPSULE (FP) PO PRN (21:05)
[2018-08-04] MEDS: GABAPENTIN 300 MG CAPSULE (FP) PO SCH ×3 (06:13→21:23)
[2018-08-04] MEDS: HALOPERIDOL 5 MG TABLET (FP) PO SCH ×3 (06:13→21:23)
[2018-08-04] MEDS: METHADONE HCL 40 MG DISPERSABLE TABLET PO SCH (06:14)
[2018-08-04] MEDS: cloNIDine HCL 0.1 MG TABLET PO SCH ×3 (06:14→21:23)
[2018-08-04] MEDS: FERROUS SO4 325 MG TABLET (FP) PO SCH ×3 (07:12→17:25)
[2018-08-04] MEDS: BACITRACIN 0.9 GM PACKET TP SCH ×2 (09:48→21:23)
[2018-08-04] MEDS: BENZTROPINE MESYLATE 1 MG TABLET (FP) PO SCH ×2 (09:49→21:23)
[2018-08-04] MEDS: NICOTINE 21 MG/24 HOURS TOPICAL PATCH TD SCH (09:49)
[2018-08-04] MEDS: PRENATAL VITAMINS W/ FOLIC ACID TABLET (FP) PO SCH (09:50)
[2018-08-04] MEDS: PANTOPRAZOLE 40 MG TABLET (FP) PO SCH (09:50)
[2018-08-04] MEDS ORDERED: PT OWN MED DRAWER 7, Y5N ONE (10:21)
[2018-08-04] MEDS: QUEtiapine FUMARATE 100 MG TABLET (FP) PO SCH (21:23)
[2018-08-04] MEDS: hydrOXYzine PAMOATE 50 MG CAPSULE (FP) PO PRN (21:23)
[2018-08-04] MEDS: THIAMINE HCL 100 MG TABLET (FP) PO SCH (21:23)
[2018-08-05] MEDS: METHADONE HCL 40 MG DISPERSABLE TABLET PO SCH (06:06)
[2018-08-05] MEDS: HALOPERIDOL 5 MG TABLET (FP) PO SCH ×3 (06:06→21:22)
[2018-08-05] MEDS: GABAPENTIN 300 MG CAPSULE (FP) PO SCH ×3 (06:06→21:22)
[2018-08-05] MEDS: cloNIDine HCL 0.1 MG TABLET PO SCH ×3 (06:08→21:22)
[2018-08-05] MEDS: FERROUS SO4 325 MG TABLET (FP) PO SCH ×3 (08:10→17:25)
[2018-08-05] MEDS: BACITRACIN 0.9 GM PACKET TP SCH ×2 (10:19→21:23)
[2018-08-05] MEDS: PANTOPRAZOLE 40 MG TABLET (FP) PO SCH (10:20)
[2018-08-05] MEDS: NICOTINE 21 MG/24 HOURS TOPICAL PATCH TD SCH (10:20)
[2018-08-05] MEDS: BENZTROPINE MESYLATE 1 MG TABLET (FP) PO SCH ×2 (10:20→21:23)
[2018-08-05] MEDS: PRENATAL VITAMINS W/ FOLIC ACID TABLET (FP) PO SCH (10:20)
[2018-08-05] MEDS: hydrOXYzine PAMOATE 50 MG CAPSULE (FP) PO PRN (21:22)
[2018-08-05] MEDS: THIAMINE HCL 100 MG TABLET (FP) PO SCH (21:22)
[2018-08-05] MEDS: QUEtiapine FUMARATE 50 MG TABLET PO SCH (21:25)
[2018-08-06] MEDS: MAG HYDROX/AL HYDROX/SIMETH 30 ML UNIT-DOSE CUP PO PRN (01:36)
[2018-08-06] MEDS: METHADONE HCL 40 MG DISPERSABLE TABLET PO SCH (06:43)
[2018-08-06] MEDS: GABAPENTIN 300 MG CAPSULE (FP) PO SCH ×3 (06:43→21:31)
[2018-08-06] MEDS: cloNIDine HCL 0.1 MG TABLET PO SCH ×3 (06:43→21:33)
[2018-08-06] MEDS: HALOPERIDOL 5 MG TABLET (FP) PO SCH ×3 (06:43→21:32)
[2018-08-06] MEDS: FERROUS SO4 325 MG TABLET (FP) PO SCH ×3 (07:07→17:36)
[2018-08-06] MEDS: PRENATAL VITAMINS W/ FOLIC ACID TABLET (FP) PO SCH (10:37)
[2018-08-06] MEDS: BENZTROPINE MESYLATE 1 MG TABLET (FP) PO SCH ×2 (10:38→21:31)
[2018-08-06] MEDS: BACITRACIN 0.9 GM PACKET TP SCH ×2 (10:38→21:31)
[2018-08-06] MEDS: PANTOPRAZOLE 40 MG TABLET (FP) PO SCH (10:38)
[2018-08-06] MEDS: NICOTINE 21 MG/24 HOURS TOPICAL PATCH TD SCH (10:38)
[2018-08-06] MEDS: QUEtiapine FUMARATE 50 MG TABLET PO SCH (21:31)
[2018-08-06] MEDS: THIAMINE HCL 100 MG TABLET (FP) PO SCH (21:32)
[2018-08-07] MEDS: METHADONE HCL 40 MG DISPERSABLE TABLET PO SCH (06:40)
[2018-08-07] MEDS: GABAPENTIN 300 MG CAPSULE (FP) PO SCH ×3 (06:40→21:47)
[2018-08-07] MEDS: HALOPERIDOL 5 MG TABLET (FP) PO SCH ×3 (06:41→21:47)
[2018-08-07] MEDS: cloNIDine HCL 0.1 MG TABLET PO SCH ×3 (06:41→21:47)
[2018-08-07] MEDS: MAG HYDROX/AL HYDROX/SIMETH 30 ML UNIT-DOSE CUP PO PRN (06:43)
[2018-08-07] MEDS: FERROUS SO4 325 MG TABLET (FP) PO SCH ×3 (07:20→16:55)
[2018-08-07] MEDS: NICOTINE 21 MG/24 HOURS TOPICAL PATCH TD SCH (10:05)
[2018-08-07] MEDS: BENZTROPINE MESYLATE 1 MG TABLET (FP) PO SCH ×2 (10:05→21:47)
[2018-08-07] MEDS: PRENATAL VITAMINS W/ FOLIC ACID TABLET (FP) PO SCH (10:05)
[2018-08-07] MEDS: PANTOPRAZOLE 40 MG TABLET (FP) PO SCH (10:05)
[2018-08-07] MEDS: BACITRACIN 0.9 GM PACKET TP SCH ×2 (10:05→21:46)
[2018-08-07] MEDS: THIAMINE HCL 100 MG TABLET (FP) PO SCH (21:47)
[2018-08-07] MEDS: QUEtiapine FUMARATE 50 MG TABLET PO SCH (21:47)
[2018-08-08] MEDS: GABAPENTIN 300 MG CAPSULE (FP) PO SCH ×3 (06:07→21:39)
[2018-08-08] MEDS: HALOPERIDOL 5 MG TABLET (FP) PO SCH ×3 (06:07→21:38)
[2018-08-08] MEDS: cloNIDine HCL 0.1 MG TABLET PO SCH ×3 (06:07→21:39)
[2018-08-08] MEDS: METHADONE HCL 40 MG DISPERSABLE TABLET PO SCH (06:50)
[2018-08-08] MEDS: FERROUS SO4 325 MG TABLET (FP) PO SCH ×3 (07:07→17:35)
[2018-08-08] MEDS: BENZTROPINE MESYLATE 1 MG TABLET (FP) PO SCH ×2 (10:02→21:39)
[2018-08-08] MEDS: BACITRACIN 0.9 GM PACKET TP SCH ×2 (10:02→21:42)
[2018-08-08] MEDS: NICOTINE 21 MG/24 HOURS TOPICAL PATCH TD SCH (10:02)
[2018-08-08] MEDS: PANTOPRAZOLE 40 MG TABLET (FP) PO SCH (10:03)
[2018-08-08] MEDS: PRENATAL VITAMINS W/ FOLIC ACID TABLET (FP) PO SCH (10:03)
--- NOTE | 2018-08-08 11:20 | PN ---
[facility] Progress Note Note: PT CONTINUES TO HAVE NEW BOIL ERUPTIONS UNDER HER ARMPIT. C/O PAIN AND BUMP TO RIGHT ARMPIT. Vital Signs 08/08/18 08/08/18 03:30 06:58 Temperature 97.4 F L Pulse Rate 79 Respiratory 18 16 Rate Blood Pressure 90/64 Laboratory Tests 07/19/18 07/20/18 07/20/18 22:52 08:30 08:30 WBC 5.2 RBC 4.91 Hgb 10.5 L Hct 34.9 MCV 71.1 L MCH 21.3 L MCHC 30.0 L RDW 21.4 H Plt Count 212 MPV 12.0 H Sickle Cell Screen Negative Sodium 137 Potassium 4.0 Chloride 102 Carbon Dioxide 26 Anion Gap 9 BUN 12 Creatinine 0.7 Creat Clearance w eGFR > 60 POC Glucometer Random Glucose 145 H Calcium 9.1 Total Bilirubin 0.1 L AST 19 ALT 25 Alkaline Phosphatase 68 Total Protein 7.0 Albumin 3.8 Urine Color Ltyellow Urine Appearance Clear Urine pH 6.0 Ur Specific [place] 1.014 Urine Protein Negative Urine Glucose (UA) Negative Urine Ketones Negative Urine Blood Negative Urine Nitrite Negative Urine Bilirubin Negative Urine Urobilinogen Negative Ur Leukocyte Esterase 1+ H Urine WBC (Auto) 2 Urine RBC (Auto) None Ur Epithelial Cells Rare Urine Bacteria Rare Urine Mucus Rare RPR Titer 07/20/18 07/23/18 07/23/18 08:30 06:43 14:39 WBC RBC Hgb Hct MCV MCH MCHC RDW Plt Count MPV Sickle Cell Screen Sodium Potassium Chloride Carbon Dioxide Anion Gap BUN Creatinine Creat Clearance w eGFR POC Glucometer 90 Random Glucose Calcium Total Bilirubin AST ALT Alkaline Phosphatase Total Protein Albumin Urine Color Yellow Urine Appearance Clear Urine pH 6.0 Ur Specific [place] 1.017 Urine Protein Negative Urine Glucose (UA) Negative Urine Ketones Negative Urine Blood 3+ H Urine Nitrite Negative Urine Bilirubin Negative Urine Urobilinogen Negative Ur Leukocyte Esterase Negative Urine WBC (Auto) 1 Urine RBC (Auto) 13 Ur Epithelial Cells Rare Urine Bacteria Urine Mucus Rare RPR Titer Nonreactive 07/24/18 07/25/18 06:26 06:05 WBC RBC Hgb Hct MCV MCH MCHC RDW Plt Count MPV Sickle Cell Screen Sodium Potassium Chloride Carbon Dioxide Anion Gap BUN Creatinine Creat Clearance w eGFR POC Glucometer 103 97 Random Glucose Calcium Total Bilirubin AST ALT Alkaline Phosphatase Total Protein Albumin Urine Color Urine Appearance Urine pH Ur Specific [place] Urine Protein Urine Glucose (UA) Urine Ketones Urine Blood Urine Nitrite Urine Bilirubin Urine Urobilinogen Ur Leukocyte Esterase Urine WBC (Auto) Urine RBC (Auto) Ur Epithelial Cells Urine Bacteria Urine Mucus RPR Titer RIGHT ARMPIT WITH NEW ERUPTING BUMP. REDNESS AND PAIN TO TOUCH. LEFT ARMPIT BOIL RESOLVING PLAN:KEFLEX 250 MG PO Q6H X 10 DAYS. CONTINUE BACITRACIN OINTMENT DIRECTED.
[2018-08-08] MEDS: CEPHALEXIN MONOHYDRATE 250 MG CAPSULE (FP) PO SCH ×3 (11:59→23:30)
[2018-08-08] MEDS: THIAMINE HCL 100 MG TABLET (FP) PO SCH (21:38)
[2018-08-08] MEDS: QUEtiapine FUMARATE 50 MG TABLET PO SCH (21:39)
[2018-08-08] MEDS: MAGNESIUM HYDROX 2400MG/30ML ORAL SUSPENSION 30 ML CUP PO PRN (21:41)
[2018-08-09] MEDS: MAG HYDROX/AL HYDROX/SIMETH 30 ML UNIT-DOSE CUP PO PRN (01:18)
[2018-08-09] MEDS: CEPHALEXIN MONOHYDRATE 250 MG CAPSULE (FP) PO SCH ×4 (06:15→23:33)
[2018-08-09] MEDS: METHADONE HCL 40 MG DISPERSABLE TABLET PO SCH (06:15)
[2018-08-09] MEDS: GABAPENTIN 300 MG CAPSULE (FP) PO SCH ×3 (06:15→21:29)
[2018-08-09] MEDS: HALOPERIDOL 5 MG TABLET (FP) PO SCH ×3 (06:15→21:29)
[2018-08-09] MEDS: cloNIDine HCL 0.1 MG TABLET PO SCH ×3 (06:15→21:29)
[2018-08-09] MEDS: FERROUS SO4 325 MG TABLET (FP) PO SCH ×3 (07:03→17:20)
[2018-08-09] MEDS: NICOTINE 21 MG/24 HOURS TOPICAL PATCH TD SCH (10:07)
[2018-08-09] MEDS: BACITRACIN 0.9 GM PACKET TP SCH ×2 (10:07→21:30)
[2018-08-09] MEDS: PRENATAL VITAMINS W/ FOLIC ACID TABLET (FP) PO SCH (10:08)
[2018-08-09] MEDS: PANTOPRAZOLE 40 MG TABLET (FP) PO SCH (10:08)
[2018-08-09] MEDS: BENZTROPINE MESYLATE 1 MG TABLET (FP) PO SCH ×2 (10:08→21:29)
[2018-08-09] MEDS ORDERED: COLLOIDAL OATMEAL 1 BAR EACH TP PRN (15:05)
[2018-08-09] MEDS: THIAMINE HCL 100 MG TABLET (FP) PO SCH (21:28)
[2018-08-09] MEDS: hydrOXYzine PAMOATE 50 MG CAPSULE (FP) PO PRN (21:29)
[2018-08-09] MEDS: QUEtiapine FUMARATE 50 MG TABLET PO SCH (21:29)
[2018-08-10] MEDS: MAG HYDROX/AL HYDROX/SIMETH 30 ML UNIT-DOSE CUP PO PRN (01:12)
[2018-08-10] MEDS: GABAPENTIN 300 MG CAPSULE (FP) PO SCH ×3 (06:22→21:45)
[2018-08-10] MEDS: HALOPERIDOL 5 MG TABLET (FP) PO SCH ×3 (06:22→21:45)
[2018-08-10] MEDS: METHADONE HCL 40 MG DISPERSABLE TABLET PO SCH (06:22)
[2018-08-10] MEDS: CEPHALEXIN MONOHYDRATE 250 MG CAPSULE (FP) PO SCH ×4 (06:23→23:49)
[2018-08-10] MEDS: cloNIDine HCL 0.1 MG TABLET PO SCH ×3 (06:23→22:21)
[2018-08-10] MEDS: FERROUS SO4 325 MG TABLET (FP) PO SCH ×3 (07:32→18:21)
[2018-08-10] MEDS: NICOTINE 21 MG/24 HOURS TOPICAL PATCH TD SCH (10:10)
[2018-08-10] MEDS: BENZTROPINE MESYLATE 1 MG TABLET (FP) PO SCH ×2 (10:11→21:44)
[2018-08-10] MEDS: PANTOPRAZOLE 40 MG TABLET (FP) PO SCH (10:11)
[2018-08-10] MEDS: BACITRACIN 0.9 GM PACKET TP SCH ×2 (10:11→21:44)
[2018-08-10] MEDS: PRENATAL VITAMINS W/ FOLIC ACID TABLET (FP) PO SCH (10:11)
[2018-08-10] MEDS: THIAMINE HCL 100 MG TABLET (FP) PO SCH (21:44)
[2018-08-10] MEDS: QUEtiapine FUMARATE 50 MG TABLET PO SCH (21:45)
[2018-08-11] MEDS: MAG HYDROX/AL HYDROX/SIMETH 30 ML UNIT-DOSE CUP PO PRN (00:33)
[2018-08-11] MEDS: CEPHALEXIN MONOHYDRATE 250 MG CAPSULE (FP) PO SCH ×3 (06:31→18:15)
[2018-08-11] MEDS: GABAPENTIN 300 MG CAPSULE (FP) PO SCH ×3 (06:31→21:57)
[2018-08-11] MEDS: HALOPERIDOL 5 MG TABLET (FP) PO SCH ×3 (06:31→21:56)
[2018-08-11] MEDS: METHADONE HCL 40 MG DISPERSABLE TABLET PO SCH (06:31)
[2018-08-11] MEDS: cloNIDine HCL 0.1 MG TABLET PO SCH ×3 (06:31→21:57)
[2018-08-11] MEDS: FERROUS SO4 325 MG TABLET (FP) PO SCH ×3 (07:03→18:15)
[2018-08-11] MEDS: BACITRACIN 0.9 GM PACKET TP SCH ×2 (10:49→21:56)
[2018-08-11] MEDS: NICOTINE 21 MG/24 HOURS TOPICAL PATCH TD SCH (10:49)
[2018-08-11] MEDS: PANTOPRAZOLE 40 MG TABLET (FP) PO SCH (10:49)
[2018-08-11] MEDS: PRENATAL VITAMINS W/ FOLIC ACID TABLET (FP) PO SCH (10:50)
[2018-08-11] MEDS: BENZTROPINE MESYLATE 1 MG TABLET (FP) PO SCH ×2 (10:50→21:57)
[2018-08-11] MEDS: QUEtiapine FUMARATE 50 MG TABLET PO SCH (21:57)
[2018-08-11] MEDS: THIAMINE HCL 100 MG TABLET (FP) PO SCH (21:57)
[2018-08-12] MEDS: CEPHALEXIN MONOHYDRATE 250 MG CAPSULE (FP) PO SCH ×4 (00:58→18:50)
[2018-08-12] MEDS: METHADONE HCL 40 MG DISPERSABLE TABLET PO SCH (06:27)
[2018-08-12] MEDS: HALOPERIDOL 5 MG TABLET (FP) PO SCH ×3 (06:28→22:05)
[2018-08-12] MEDS: GABAPENTIN 300 MG CAPSULE (FP) PO SCH ×3 (06:28→22:05)
[2018-08-12] MEDS: cloNIDine HCL 0.1 MG TABLET PO SCH ×3 (06:28→22:05)
[2018-08-12] MEDS: FERROUS SO4 325 MG TABLET (FP) PO SCH ×3 (07:18→18:50)
[2018-08-12] MEDS: NICOTINE 21 MG/24 HOURS TOPICAL PATCH TD SCH (10:10)
[2018-08-12] MEDS: BACITRACIN 0.9 GM PACKET TP SCH ×2 (10:10→22:05)
[2018-08-12] MEDS: BENZTROPINE MESYLATE 1 MG TABLET (FP) PO SCH ×2 (10:10→22:05)
[2018-08-12] MEDS: PANTOPRAZOLE 40 MG TABLET (FP) PO SCH (10:11)
[2018-08-12] MEDS: PRENATAL VITAMINS W/ FOLIC ACID TABLET (FP) PO SCH (10:11)
[2018-08-12] MEDS ORDERED: PT OWN MED DRAWER 7, Y5N ONE (10:43)
[2018-08-12] MEDS: MAG HYDROX/AL HYDROX/SIMETH 30 ML UNIT-DOSE CUP PO PRN (11:44)
[2018-08-12] MEDS: THIAMINE HCL 100 MG TABLET (FP) PO SCH (22:05)
[2018-08-12] MEDS: QUEtiapine FUMARATE 50 MG TABLET PO SCH (22:05)
[2018-08-13] MEDS: CEPHALEXIN MONOHYDRATE 250 MG CAPSULE (FP) PO SCH ×5 (01:39→23:45)
[2018-08-13] MEDS: HALOPERIDOL 5 MG TABLET (FP) PO SCH ×3 (06:51→21:15)
[2018-08-13] MEDS: METHADONE HCL 40 MG DISPERSABLE TABLET PO SCH (06:51)
[2018-08-13] MEDS: GABAPENTIN 300 MG CAPSULE (FP) PO SCH ×3 (06:51→21:15)
[2018-08-13] MEDS: cloNIDine HCL 0.1 MG TABLET PO SCH ×3 (06:51→21:16)
[2018-08-13] MEDS: FERROUS SO4 325 MG TABLET (FP) PO SCH ×3 (07:23→17:58)
[2018-08-13] MEDS: PANTOPRAZOLE 40 MG TABLET (FP) PO SCH (09:42)
[2018-08-13] MEDS: BACITRACIN 0.9 GM PACKET TP SCH ×2 (09:42→21:15)
[2018-08-13] MEDS: PRENATAL VITAMINS W/ FOLIC ACID TABLET (FP) PO SCH (09:42)
[2018-08-13] MEDS: BENZTROPINE MESYLATE 1 MG TABLET (FP) PO SCH ×2 (09:42→21:15)
[2018-08-13] MEDS: NICOTINE 21 MG/24 HOURS TOPICAL PATCH TD SCH (09:43)
[2018-08-13] MEDS: THIAMINE HCL 100 MG TABLET (FP) PO SCH (21:15)
[2018-08-13] MEDS: QUEtiapine FUMARATE 50 MG TABLET PO SCH (21:16)
[2018-08-14] MEDS: cloNIDine HCL 0.1 MG TABLET PO SCH ×3 (06:27→22:18)
[2018-08-14] MEDS: GABAPENTIN 300 MG CAPSULE (FP) PO SCH ×3 (06:27→22:18)
[2018-08-14] MEDS: METHADONE HCL 40 MG DISPERSABLE TABLET PO SCH (06:27)
[2018-08-14] MEDS: HALOPERIDOL 5 MG TABLET (FP) PO SCH ×3 (06:28→18:30)
[2018-08-14] MEDS: CEPHALEXIN MONOHYDRATE 250 MG CAPSULE (FP) PO SCH ×3 (06:28→22:19)
[2018-08-14] MEDS: FERROUS SO4 325 MG TABLET (FP) PO SCH ×3 (07:01→17:20)
[2018-08-14] MEDS ORDERED: PT OWN MED DRAWER 7, Y5N ONE (08:32)
[2018-08-14] MEDS: PANTOPRAZOLE 40 MG TABLET (FP) PO SCH (10:14)
[2018-08-14] MEDS: BENZTROPINE MESYLATE 1 MG TABLET (FP) PO SCH ×2 (10:14→22:18)
[2018-08-14] MEDS: PRENATAL VITAMINS W/ FOLIC ACID TABLET (FP) PO SCH (10:14)
[2018-08-14] MEDS: NICOTINE 21 MG/24 HOURS TOPICAL PATCH TD SCH (10:14)
[2018-08-14] MEDS: BACITRACIN 0.9 GM PACKET TP SCH ×2 (10:14→22:21)
--- NOTE | 2018-08-14 14:30 | PN ---
Psychiatric Progress Note Vital Signs: Vital Signs Period Temp Pulse Resp BP Sys/Dhillon Pulse Ox Last 24 Hr 98.2 F 80-89 18-18 108-123/74-87 Current Medications: Active Medications Generic Name Dose Route Start Last Admin Trade Name Freq PRN Reason Stop Dose Admin Acetaminophen 650 mg 07/19/18 16:20 Tylenol - PO Q4H PRN FEVER Al Hydroxide/Mg Hydroxide 30 ml 07/19/18 16:20 08/12/18 11:44 Mylanta Oral Suspension - PO 30 ml Q6H PRN Administration DYSPEPSIA Bacitracin 2.7 gm 08/01/18 15:41 08/14/18 10:14 Bacitracin - TP 2.7 gm BID ARON Administration Benztropine Mesylate 1 mg 07/21/18 22:00 08/13/18 21:15 Cogentin - PO 1 mg HS ARON Administration Benztropine Mesylate 0.5 mg 07/24/18 10:00 08/14/18 10:14 Cogentin - PO 0.5 mg DAILY ARON Administration Cephalexin HCl 250 mg 08/08/18 12:00 08/14/18 12:57 Keflex - PO 250 mg Q6HPO ARON Administration Clonidine 0.1 mg 07/19/18 22:00 08/14/18 13:53 Catapres - PO 0.1 mg TID ARON Administration Eucalyptus/Menthol/Phenol/Sorbitol 1 each 07/19/18 16:20 Cepastat Lozenge - MM Q4H PRN SORE THROAT Ferrous Sulfate 325 mg 07/19/18 17:30 08/14/18 12:40 Feosol - PO 325 mg TIDCM ARON Administration Gabapentin 300 mg 07/22/18 22:00 08/14/18 13:53 Neurontin - PO 300 mg TID ARON Administration Guaifenesin 10 ml 07/19/18 16:20 Robitussin Dm - PO Q6H PRN COUGH Haloperidol 5 mg 07/24/18 14:00 08/14/18 13:53 Haldol - PO 5 mg TID ARON Administration Hydroxyzine Pamoate 50 mg 07/19/18 17:22 08/09/18 21:29 Vistaril - PO 50 mg Q4H PRN Administration AGITATION/ANXIETY Ibuprofen 400 mg 07/19/18 16:20 07/24/18 11:57 Motrin - PO 400 mg Q6H PRN Administration Pain level 4-6 Loperamide HCl 4 mg 07/19/18 16:20 Imodium - PO Q6H PRN DIARRHEA Magnesium Citrate 300 ml 07/19/18 16:20 Citroma - PO Q48H PRN CONSTIPATION Magnesium Hydroxide 30 ml 07/19/18 16:20 08/08/18 21:41 Milk Of Magnesia - PO 30 ml DAILY PRN Administration CONSTIPATION Methadone HCl 40 mg 08/15/18 06:00 Dolophine - PO DAILY@0600 ARON Nicotine 21 mg 07/19/18 16:30 08/14/18 10:14 Nicoderm Patch - TD 21 mg DAILY ARON Administration Pantoprazole Sodium 40 mg 07/28/18 12:05 08/14/18 10:14 Protonix - PO 40 mg DAILY ARON Administration Multivit/Folic Acid/Iron 1 tab 07/20/18 10:00 08/14/18 10:14 Vitamins (Sjr) - PO 1 tab DAILY ARON Administration Pseudoephedrine/Triprolidine 1 combo 07/19/18 16:20 Actifed - PO TID PRN NASAL CONGESTION Quetiapine Fumarate 150 mg 08/05/18 22:00 08/13/18 21:16 Seroquel - PO 150 mg HS ARON Administration Thiamine HCl 100 mg 07/19/18 22:00 08/13/18 21:15 Vitamin B1 - PO 100 mg HS ARON Administration Psychiatric Treatment Plan - Problem List (1) Schizoaffective disorder Current Visit: Yes Comment: . (2) Opioid dependence on agonist therapy Current Visit: Yes Comment: . (3) Opioid dependence Current Visit: Yes Comment: . (4) Nicotine dependence Current Visit: Yes Comment: . (5) Insomnia Current Visit: Yes Comment: .
--- NOTE | 2018-08-14 14:50 | PN ---
[facility] Progress Note Note: Psychiatry Attending's on-call note : Called for discharge order. As per nurse, Ms Tran is scheduled for discharge (08/15/18). No discharge order will be issued today. Pre-discharge assessment will be done in AM. By unit psychiatrist. Discussed with nursing staff. No further intervention necessary at this time.
[2018-08-14] MEDS: QUEtiapine FUMARATE 50 MG TABLET PO SCH (22:18)
[2018-08-14] MEDS: THIAMINE HCL 100 MG TABLET (FP) PO SCH (22:18)
[2018-08-14] MEDS: hydrOXYzine PAMOATE 50 MG CAPSULE (FP) PO PRN (22:18)
[2018-08-15] MEDS: CEPHALEXIN MONOHYDRATE 250 MG CAPSULE (FP) PO SCH ×2 (00:31→06:24)
[2018-08-15] MEDS ORDERED: METHADONE HCL 10 MG TABLET PO SCH (06:00)
[2018-08-15] MEDS ORDERED: METHADONE HCL 40 MG DISPERSABLE TABLET PO SCH (06:00)
[2018-08-15] MEDS: GABAPENTIN 300 MG CAPSULE (FP) PO SCH (06:23)
[2018-08-15] MEDS: cloNIDine HCL 0.1 MG TABLET PO SCH (06:23)
[2018-08-15] MEDS: HALOPERIDOL 5 MG TABLET (FP) PO SCH (06:23)
[2018-08-15 07:01] VITALS: BP 132/82; PULSE 100; TEMP 97.4
[2018-08-15] MEDS: FERROUS SO4 325 MG TABLET (FP) PO SCH (07:20)
--- NOTE | 2018-08-15 08:22 | PN ---
Psychiatric Progress Note Vital Signs: Vital Signs Period Temp Pulse Resp BP Sys/Dhillon Pulse Ox Last 24 Hr 97.4 F-97.9 F 80-100 18-18 106-132/74-82 Date of Session: 08/15/18 Chief Complaint:: Discharge visit Current Medications: Active Medications Generic Name Dose Route Start Last Admin Trade Name Freq PRN Reason Stop Dose Admin Acetaminophen 650 mg 07/19/18 16:20 Tylenol - PO Q4H PRN FEVER Al Hydroxide/Mg Hydroxide 30 ml 07/19/18 16:20 08/12/18 11:44 Mylanta Oral Suspension - PO 30 ml Q6H PRN Administration DYSPEPSIA Bacitracin 2.7 gm 08/01/18 15:41 08/14/18 22:21 Bacitracin - TP 2.7 gm BID ARON Administration Benztropine Mesylate 1 mg 07/21/18 22:00 08/14/18 22:18 Cogentin - PO 1 mg HS ARON Administration Benztropine Mesylate 0.5 mg 07/24/18 10:00 08/14/18 10:14 Cogentin - PO 0.5 mg DAILY ARON Administration Cephalexin HCl 250 mg 08/08/18 12:00 08/15/18 06:24 Keflex - PO 250 mg Q6HPO ARON Administration Clonidine 0.1 mg 07/19/18 22:00 08/15/18 06:23 Catapres - PO 0.1 mg TID ARON Administration Eucalyptus/Menthol/Phenol/Sorbitol 1 each 07/19/18 16:20 Cepastat Lozenge - MM Q4H PRN SORE THROAT Ferrous Sulfate 325 mg 07/19/18 17:30 08/15/18 07:20 Feosol - PO 325 mg TIDCM ARON Administration Gabapentin 300 mg 07/22/18 22:00 08/15/18 06:23 Neurontin - PO 300 mg TID ARON Administration Guaifenesin 10 ml 07/19/18 16:20 Robitussin Dm - PO Q6H PRN COUGH Haloperidol 5 mg 07/24/18 14:00 08/15/18 06:23 Haldol - PO 5 mg TID ARON Administration Hydroxyzine Pamoate 50 mg 07/19/18 17:22 08/14/18 22:18 Vistaril - PO 50 mg Q4H PRN Administration AGITATION/ANXIETY Ibuprofen 400 mg 07/19/18 16:20 07/24/18 11:57 Motrin - PO 400 mg Q6H PRN Administration Pain level 4-6 Loperamide HCl 4 mg 07/19/18 16:20 Imodium - PO Q6H PRN DIARRHEA Magnesium Citrate 300 ml 07/19/18 16:20 Citroma - PO Q48H PRN CONSTIPATION Magnesium Hydroxide 30 ml 07/19/18 16:20 08/08/18 21:41 Milk Of Magnesia - PO 30 ml DAILY PRN Administration CONSTIPATION Methadone HCl 40 mg 08/15/18 06:00 08/15/18 06:22 Dolophine - PO 40 mg DAILY@0600 ARON Administration Nicotine 21 mg 07/19/18 16:30 08/14/18 10:14 Nicoderm Patch - TD 21 mg DAILY ARON Administration Pantoprazole Sodium 40 mg 07/28/18 12:05 08/14/18 10:14 Protonix - PO 40 mg DAILY ARON Administration Multivit/Folic Acid/Iron 1 tab 07/20/18 10:00 08/14/18 10:14 Vitamins (Sjr) - PO 1 tab DAILY ARON Administration Pseudoephedrine/Triprolidine 1 combo 07/19/18 16:20 Actifed - PO TID PRN NASAL CONGESTION Quetiapine Fumarate 150 mg 08/05/18 22:00 08/14/18 22:18 Seroquel - PO 150 mg HS ARON Administration Thiamine HCl 100 mg 07/19/18 22:00 08/14/18 22:18 Vitamin B1 - PO 100 mg HS ARON Administration Current Side Effect: No Lab tests ordered: No Lab tests reviewed: Yes Provider note:: patient completed this program today. Total face to face time:: 30
== END 2018-08-15 08:43 | disposition home or self-care (01) | DRG 772 ==
LOC: YASAS 12:22 → Y3E 15:16
PROVIDERS: ADMIT Psychiatry & Neurology Psychiatry; ATTEND Psychiatry & Neurology Psychiatry
PROC: HZ42ZZZ Group Counseling for Substance Abuse Treatment, Cognitive-Behavioral (ICD-10-PCS; principal; 2018-07-19)
DX: F11.20 Opioid dependence, uncomplicated (principal); F17.210 Nicotine dependence, cigarettes, uncomplicated; F25.9 Schizoaffective disorder, unspecified; F31.9 Bipolar disorder, unspecified; F43.10 Post-traumatic stress disorder, unspecified; G47.00 Insomnia, unspecified; I10 Essential (primary) hypertension; Z86.69 Personal history of other diseases of the nervous system and sense organs; Z91.013 Allergy to seafood; Z91.5 Personal history of self-harm
CPT/HCPCS: 36415; 80053; 81003; 81015; 82962; 85027; 85660; 86593; 93005; 93010; J0735; J2794

== ENCOUNTER 2021-10-23 17:14 | Inpatient (IN) | payer OTHER ==
[2021-10-23 18:00] VITALS: BMI 44.6
[2021-10-23] MEDS ORDERED: LOPERAMIDE HCL 2 MG CAPSULE PO PRN (19:09)
[2021-10-23] MEDS ORDERED: P-EPHED 60MG/TRIPROLIDI 2.5MG TABLET PO PRN (19:09)
[2021-10-23] MEDS ORDERED: MAGNESIUM CITRATE 300 ML BOTTLE PO PRN (19:09)
[2021-10-23] MEDS ORDERED: MELATONIN 5 MG TABLETS PO PRN (19:09)
[2021-10-23] MEDS ORDERED: ACETAMINOPHEN 325 MG TABLET (FP) PO PRN (19:09)
[2021-10-23] MEDS ORDERED: MAG HYDROX/AL HYDROX/SIMETH 30 ML UNIT-DOSE CUP PO PRN (19:09)
[2021-10-23] MEDS ORDERED: guaiFENesin 200 MG/10 ML 10 ML UNIT-DOSE CUPS PO PRN (19:09)
[2021-10-23] MEDS ORDERED: LITHIUM CARBONATE 150 MG CAPSULE PO ONE (22:00)
[2021-10-23] MEDS ORDERED: OLANZapine 5 MG TABLET PO ONE (22:00)
[2021-10-23] MEDS ORDERED: GABAPENTIN 400 MG CAPSULE PO ONE (22:00)
[2021-10-23] MEDS ORDERED: traZODone HCL 50 MG TABLET (FP) PO ONE (22:00)
[2021-10-23] MEDS ORDERED: LITHIUM CARBONATE 450 MG TABLET.ER PO ONE (22:00)
[2021-10-23] MEDS: THIAMINE HCL 100 MG TABLET (FP) PO SCH (22:35)
[2021-10-24] MEDS ORDERED: methaDONE HCL 10 MG TABLET ONE (05:57)
[2021-10-24] MEDS ORDERED: methaDONE HCL 40 MG DISPERSABLE TABLET ONE (05:58)
[2021-10-24] MEDS ORDERED: methaDONE HCL 40 MG DISPERSABLE TABLET PO SCH (06:00)
[2021-10-24] MEDS: methaDONE 40 MG, methaDONE 20 MG PO SCH (06:02)
[2021-10-24] MEDS: MAGNESIUM HYDROX 2400MG/30ML ORAL SUSPENSION 30 ML CUP PO PRN (06:58)
[2021-10-24] MEDS: PRENATAL VITAMINS W/ FOLIC ACID TABLET (FP) PO SCH ×2 (09:57→10:59)
[2021-10-24] MEDS: VITAMIN B COMPLEX W/C COMBO TABLET (FP) PO SCH ×2 (09:57→10:59)
[2021-10-24] MEDS ORDERED: LITHIUM CARBONATE 450 MG TABLET.ER PO SCH (10:30)
[2021-10-24 10:37] LABS: HEMATOCRIT 35.8 % (32.4-45.2); HEMOGLOBIN 11.4 GM/dL (10.7-15.3); MCH 24.6 pg (25.7-33.7); MCHC 31.8 g/dl (32.0-36.0); MEAN CELL VOLUME 77.3 fl (80-96); MEAN PLT VOLUME 8.4 fl (7.5-11.1); PLATELET COUNT 241 10^3/uL (134-434); RBC 4.63 M/mm3 (3.60-5.2); RDW 21.1 % (11.6-15.6); WHITE BLOOD COUNT 5.4 K/mm3 (4.0-10.0)
[2021-10-24 10:40] LABS: URINE APPEARANCE CLEAR; URINE BILIRUBIN NEGATIVE (NEGATIVE); URINE COLOR YELLOW; URINE GLUCOSE (UA) NEGATIVE (NEGATIVE); URINE KETONE NEGATIVE (NEGATIVE); URINE LEUK ESTERASE NEGATIVE (NEGATIVE); URINE NITRITE NEGATIVE (NEGATIVE); URINE PROTEIN NEGATIVE (NEGATIVE); URINE UROBILINOGEN 0.2 mg/dL (0.2-1.0)
[2021-10-24 10:45] LABS: ALBUMIN 3.6 g/dl (3.4-5.0); BLOOD UREA NITROGEN 13.6 mg/dL (7-18); CALCIUM 9.3 mg/dL (8.5-10.1)
[2021-10-24 10:48] LABS: CREATININE 0.7 mg/dL (0.55-1.3)
[2021-10-24 10:50] LABS: BILIRUBIN,TOTAL 0.3 mg/dL (0.2-1); TOT PROT 7.1 g/dl (6.4-8.2)
[2021-10-24] MEDS: ARIPiprazole 10 MG TABLET PO SCH (11:00)
[2021-10-24] MEDS ORDERED: LITHIUM CARBONATE 150 MG CAPSULE PO SCH ×2 (11:30→14:00)
[2021-10-24] MEDS: LITHIUM CARBONATE 300 MG CAPSULE PO SCH ×2 (13:44→21:29)
[2021-10-24] MEDS: GABAPENTIN 400 MG CAPSULE PO SCH ×2 (13:44→21:28)
[2021-10-24] MEDS: traZODone HCL 50 MG TABLET (FP) PO SCH (21:29)
[2021-10-24] MEDS: THIAMINE HCL 100 MG TABLET (FP) PO SCH (21:29)
[2021-10-24] MEDS: OLANZapine 7.5 MG TABLET PO SCH (21:31)
[2021-10-25] MEDS ORDERED: methaDONE HCL 10 MG TABLET ONE (03:32)
[2021-10-25] MEDS ORDERED: methaDONE HCL 40 MG DISPERSABLE TABLET ONE (03:32)
[2021-10-25] MEDS: GABAPENTIN 400 MG CAPSULE PO SCH ×3 (06:13→21:09)
[2021-10-25] MEDS: methaDONE 40 MG, methaDONE 20 MG PO SCH (06:13)
[2021-10-25] MEDS: LITHIUM CARBONATE 300 MG CAPSULE PO SCH ×3 (06:13→21:11)
[2021-10-25] MEDS: PRENATAL VITAMINS W/ FOLIC ACID TABLET (FP) PO SCH (09:55)
[2021-10-25] MEDS: ARIPiprazole 10 MG TABLET PO SCH (09:55)
[2021-10-25] MEDS: VITAMIN B COMPLEX W/C COMBO TABLET (FP) PO SCH (09:56)
[2021-10-25] MEDS: NICOTINE 10 MG CARTRIDGE (INHALER) IH SCH (11:42)
[2021-10-25] MEDS: MAGNESIUM HYDROX 2400MG/30ML ORAL SUSPENSION 30 ML CUP PO PRN (17:00)
[2021-10-25] MEDS: OLANZapine 7.5 MG TABLET PO SCH (21:09)
[2021-10-25] MEDS: THIAMINE HCL 100 MG TABLET (FP) PO SCH (21:09)
[2021-10-25] MEDS: traZODone HCL 50 MG TABLET (FP) PO SCH (21:09)
[2021-10-26] MEDS ORDERED: methaDONE HCL 40 MG DISPERSABLE TABLET ONE (05:46)
[2021-10-26] MEDS ORDERED: methaDONE HCL 10 MG TABLET ONE (05:46)
[2021-10-26] MEDS: LITHIUM CARBONATE 300 MG CAPSULE PO SCH ×3 (06:35→21:05)
[2021-10-26] MEDS: GABAPENTIN 400 MG CAPSULE PO SCH ×3 (06:35→21:05)
[2021-10-26] MEDS: methaDONE 40 MG, methaDONE 20 MG PO SCH (06:36)
[2021-10-26] MEDS: PRENATAL VITAMINS W/ FOLIC ACID TABLET (FP) PO SCH (09:45)
[2021-10-26] MEDS: ARIPiprazole 10 MG TABLET PO SCH (09:45)
[2021-10-26] MEDS: VITAMIN B COMPLEX W/C COMBO TABLET (FP) PO SCH (09:46)
[2021-10-26] MEDS: NICOTINE 10 MG CARTRIDGE (INHALER) IH SCH (09:46)
[2021-10-26] MEDS: THIAMINE HCL 100 MG TABLET (FP) PO SCH (21:05)
[2021-10-26] MEDS: OLANZapine 7.5 MG TABLET PO SCH (21:05)
[2021-10-26] MEDS: traZODone HCL 50 MG TABLET (FP) PO SCH (21:05)
[2021-10-27] MEDS ORDERED: methaDONE HCL 40 MG DISPERSABLE TABLET ONE (05:18)
[2021-10-27] MEDS ORDERED: methaDONE HCL 10 MG TABLET ONE (05:18)
[2021-10-27] MEDS: GABAPENTIN 400 MG CAPSULE PO SCH ×3 (06:07→21:10)
[2021-10-27] MEDS: methaDONE 40 MG, methaDONE 20 MG PO SCH (06:07)
[2021-10-27] MEDS: ARIPiprazole 10 MG TABLET PO SCH (09:51)
[2021-10-27] MEDS: PRENATAL VITAMINS W/ FOLIC ACID TABLET (FP) PO SCH (09:52)
[2021-10-27] MEDS: VITAMIN B COMPLEX W/C COMBO TABLET (FP) PO SCH (09:53)
[2021-10-27] MEDS: NICOTINE 10 MG CARTRIDGE (INHALER) IH PRN (09:56)
[2021-10-27] MEDS: LITHIUM CARBONATE 450 MG TABLET.ER PO SCH ×2 (12:50→21:10)
[2021-10-27] MEDS: IBUPROFEN 400 MG TABLET (FP) PO PRN (18:07)
[2021-10-27] MEDS: MAGNESIUM HYDROX 2400MG/30ML ORAL SUSPENSION 30 ML CUP PO PRN (18:07)
[2021-10-27] MEDS: traZODone HCL 50 MG TABLET (FP) PO SCH (21:10)
[2021-10-27] MEDS: OLANZapine 7.5 MG TABLET PO SCH (21:11)
[2021-10-27] MEDS: THIAMINE HCL 100 MG TABLET (FP) PO SCH (21:11)
[2021-10-28] MEDS ORDERED: methaDONE HCL 10 MG TABLET ONE (05:20)
[2021-10-28] MEDS ORDERED: methaDONE HCL 40 MG DISPERSABLE TABLET ONE (05:20)
[2021-10-28] MEDS: GABAPENTIN 400 MG CAPSULE PO SCH ×3 (06:19→21:14)
[2021-10-28] MEDS: methaDONE 40 MG, methaDONE 20 MG PO SCH (06:19)
[2021-10-28] MEDS: ARIPiprazole 10 MG TABLET PO SCH (09:54)
[2021-10-28] MEDS: PRENATAL VITAMINS W/ FOLIC ACID TABLET (FP) PO SCH (09:54)
[2021-10-28] MEDS: LITHIUM CARBONATE 450 MG TABLET.ER PO SCH ×2 (09:54→21:14)
[2021-10-28] MEDS: VITAMIN B COMPLEX W/C COMBO TABLET (FP) PO SCH (09:55)
[2021-10-28 12:34] LABS: BLOOD UREA NITROGEN 12.5 mg/dL (7-18); CALCIUM 9.1 mg/dL (8.5-10.1)
[2021-10-28 12:35] LABS: CREATININE 0.7 mg/dL (0.55-1.3)
[2021-10-28] MEDS: THIAMINE HCL 100 MG TABLET (FP) PO SCH (21:14)
[2021-10-28] MEDS: traZODone HCL 50 MG TABLET (FP) PO SCH (21:14)
[2021-10-28] MEDS: OLANZapine 7.5 MG TABLET PO SCH (21:14)
[2021-10-29] MEDS ORDERED: methaDONE HCL 40 MG DISPERSABLE TABLET ONE (03:10)
[2021-10-29] MEDS ORDERED: methaDONE HCL 10 MG TABLET ONE (03:10)
[2021-10-29] MEDS: GABAPENTIN 400 MG CAPSULE PO SCH ×3 (06:29→21:08)
[2021-10-29] MEDS: methaDONE 40 MG, methaDONE 20 MG PO SCH (06:29)
[2021-10-29] MEDS: ARIPiprazole 10 MG TABLET PO SCH (10:20)
[2021-10-29] MEDS: PRENATAL VITAMINS W/ FOLIC ACID TABLET (FP) PO SCH (10:20)
[2021-10-29] MEDS: VITAMIN B COMPLEX W/C COMBO TABLET (FP) PO SCH (10:20)
[2021-10-29] MEDS: LITHIUM CARBONATE 450 MG TABLET.ER PO SCH ×2 (10:22→21:08)
[2021-10-29] MEDS: NICOTINE 10 MG CARTRIDGE (INHALER) IH PRN (18:14)
[2021-10-29] MEDS: traZODone HCL 50 MG TABLET (FP) PO SCH (21:08)
[2021-10-29] MEDS: OLANZapine 7.5 MG TABLET PO SCH (21:08)
[2021-10-29] MEDS: THIAMINE HCL 100 MG TABLET (FP) PO SCH (21:08)
[2021-10-30] MEDS ORDERED: methaDONE HCL 40 MG DISPERSABLE TABLET ONE (03:54)
[2021-10-30] MEDS ORDERED: methaDONE HCL 10 MG TABLET ONE (03:54)
[2021-10-30] MEDS: methaDONE 40 MG, methaDONE 20 MG PO SCH (06:05)
[2021-10-30] MEDS: GABAPENTIN 400 MG CAPSULE PO SCH ×3 (06:05→21:02)
[2021-10-30] MEDS: PRENATAL VITAMINS W/ FOLIC ACID TABLET (FP) PO SCH (10:04)
[2021-10-30] MEDS: VITAMIN B COMPLEX W/C COMBO TABLET (FP) PO SCH (10:05)
[2021-10-30] MEDS: ARIPiprazole 10 MG TABLET PO SCH (10:05)
[2021-10-30] MEDS: LITHIUM CARBONATE 450 MG TABLET.ER PO SCH ×2 (10:05→21:02)
[2021-10-30] MEDS: THIAMINE HCL 100 MG TABLET (FP) PO SCH (21:01)
[2021-10-30] MEDS: OLANZapine 7.5 MG TABLET PO SCH (21:02)
[2021-10-30] MEDS: traZODone HCL 50 MG TABLET (FP) PO SCH (21:02)
[2021-10-31] MEDS ORDERED: methaDONE HCL 40 MG DISPERSABLE TABLET ONE (04:18)
[2021-10-31] MEDS ORDERED: methaDONE HCL 10 MG TABLET ONE (04:18)
[2021-10-31] MEDS: GABAPENTIN 400 MG CAPSULE PO SCH ×3 (06:50→21:02)
[2021-10-31] MEDS: methaDONE 40 MG, methaDONE 20 MG PO SCH (06:50)
[2021-10-31] MEDS: LITHIUM CARBONATE 450 MG TABLET.ER PO SCH ×2 (10:18→21:02)
[2021-10-31] MEDS: VITAMIN B COMPLEX W/C COMBO TABLET (FP) PO SCH (10:18)
[2021-10-31] MEDS: ARIPiprazole 10 MG TABLET PO SCH (10:18)
[2021-10-31] MEDS: PRENATAL VITAMINS W/ FOLIC ACID TABLET (FP) PO SCH (10:19)
[2021-10-31] MEDS: NICOTINE 10 MG CARTRIDGE (INHALER) IH PRN ×2 (10:21→21:05)
[2021-10-31] MEDS: OLANZapine 7.5 MG TABLET PO SCH (21:02)
[2021-10-31] MEDS: THIAMINE HCL 100 MG TABLET (FP) PO SCH (21:02)
[2021-10-31] MEDS: traZODone HCL 50 MG TABLET (FP) PO SCH (21:02)
[2021-11-01] MEDS ORDERED: methaDONE HCL 10 MG TABLET ONE (06:13)
[2021-11-01] MEDS ORDERED: methaDONE HCL 40 MG DISPERSABLE TABLET ONE (06:13)
[2021-11-01] MEDS: methaDONE 40 MG, methaDONE 20 MG PO SCH (06:14)
[2021-11-01] MEDS: GABAPENTIN 400 MG CAPSULE PO SCH ×3 (06:14→21:07)
[2021-11-01] MEDS: PRENATAL VITAMINS W/ FOLIC ACID TABLET (FP) PO SCH (11:19)
[2021-11-01] MEDS: ARIPiprazole 10 MG TABLET PO SCH (11:19)
[2021-11-01] MEDS: VITAMIN B COMPLEX W/C COMBO TABLET (FP) PO SCH (11:20)
[2021-11-01] MEDS: LITHIUM CARBONATE 450 MG TABLET.ER PO SCH ×2 (11:20→21:06)
[2021-11-01] MEDS: traZODone HCL 50 MG TABLET (FP) PO SCH (21:06)
[2021-11-01] MEDS: OLANZapine 7.5 MG TABLET PO SCH (21:07)
[2021-11-01] MEDS: THIAMINE HCL 100 MG TABLET (FP) PO SCH (21:07)
[2021-11-02] MEDS ORDERED: methaDONE HCL 10 MG TABLET ONE (04:54)
[2021-11-02] MEDS ORDERED: methaDONE HCL 40 MG DISPERSABLE TABLET ONE (04:54)
[2021-11-02] MEDS: methaDONE 40 MG, methaDONE 20 MG PO SCH (06:06)
[2021-11-02] MEDS: GABAPENTIN 400 MG CAPSULE PO SCH ×3 (06:07→21:39)
[2021-11-02] MEDS: PRENATAL VITAMINS W/ FOLIC ACID TABLET (FP) PO SCH (11:09)
[2021-11-02] MEDS: VITAMIN B COMPLEX W/C COMBO TABLET (FP) PO SCH (11:10)
[2021-11-02] MEDS: LITHIUM CARBONATE 450 MG TABLET.ER PO SCH ×2 (11:10→21:39)
[2021-11-02] MEDS: ARIPiprazole 10 MG TABLET PO SCH (11:10)
[2021-11-02] MEDS: NICOTINE 10 MG CARTRIDGE (INHALER) IH PRN ×2 (11:15→21:42)
[2021-11-02] MEDS: traZODone HCL 50 MG TABLET (FP) PO SCH (21:39)
[2021-11-02] MEDS: THIAMINE HCL 100 MG TABLET (FP) PO SCH (21:39)
[2021-11-02] MEDS: OLANZapine 7.5 MG TABLET PO SCH (21:40)
[2021-11-03] MEDS ORDERED: methaDONE HCL 10 MG TABLET ONE (06:20)
[2021-11-03] MEDS ORDERED: methaDONE HCL 40 MG DISPERSABLE TABLET ONE (06:21)
[2021-11-03] MEDS: GABAPENTIN 400 MG CAPSULE PO SCH ×3 (06:21→21:10)
[2021-11-03] MEDS: methaDONE 40 MG, methaDONE 20 MG PO SCH (06:22)
[2021-11-03] MEDS: ARIPiprazole 10 MG TABLET PO SCH (11:02)
[2021-11-03] MEDS: PRENATAL VITAMINS W/ FOLIC ACID TABLET (FP) PO SCH (11:02)
[2021-11-03] MEDS: VITAMIN B COMPLEX W/C COMBO TABLET (FP) PO SCH (11:03)
[2021-11-03] MEDS: LITHIUM CARBONATE 450 MG TABLET.ER PO SCH ×2 (11:03→23:16)
[2021-11-03] MEDS: THIAMINE HCL 100 MG TABLET (FP) PO SCH (21:09)
[2021-11-03] MEDS: traZODone HCL 50 MG TABLET (FP) PO SCH (21:10)
[2021-11-03] MEDS: OLANZapine 7.5 MG TABLET PO SCH (21:11)
[2021-11-03] MEDS: NICOTINE 10 MG CARTRIDGE (INHALER) IH PRN (21:36)
[2021-11-03] MEDS ORDERED: LITHIUM CARBONATE 150 MG CAPSULE PO SCH (22:00)
[2021-11-04] MEDS ORDERED: methaDONE HCL 10 MG TABLET ONE (02:53)
[2021-11-04] MEDS ORDERED: methaDONE HCL 40 MG DISPERSABLE TABLET ONE (02:53)
[2021-11-04] MEDS: methaDONE 40 MG, methaDONE 20 MG PO SCH (06:06)
[2021-11-04] MEDS: GABAPENTIN 400 MG CAPSULE PO SCH ×3 (06:06→22:00)
[2021-11-04] MEDS: ARIPiprazole 10 MG TABLET PO SCH (10:39)
[2021-11-04] MEDS: LITHIUM CARBONATE 450 MG TABLET.ER PO SCH ×2 (10:39→22:00)
[2021-11-04] MEDS: VITAMIN B COMPLEX W/C COMBO TABLET (FP) PO SCH (10:40)
[2021-11-04] MEDS: PRENATAL VITAMINS W/ FOLIC ACID TABLET (FP) PO SCH (10:40)
[2021-11-04] MEDS: NICOTINE 10 MG CARTRIDGE (INHALER) IH PRN ×2 (10:42→22:01)
[2021-11-04] MEDS: THIAMINE HCL 100 MG TABLET (FP) PO SCH (22:00)
[2021-11-04] MEDS: OLANZapine 7.5 MG TABLET PO SCH (22:00)
[2021-11-04] MEDS: traZODone HCL 50 MG TABLET (FP) PO SCH (22:01)
[2021-11-05] MEDS ORDERED: methaDONE HCL 10 MG TABLET ONE (02:48)
[2021-11-05] MEDS ORDERED: methaDONE HCL 40 MG DISPERSABLE TABLET ONE (02:48)
[2021-11-05] MEDS: GABAPENTIN 400 MG CAPSULE PO SCH ×3 (06:01→21:11)
[2021-11-05] MEDS: methaDONE 40 MG, methaDONE 20 MG PO SCH (06:02)
[2021-11-05 10:08] LABS: SARS-CoV-2 NAA Not Detected (Not Detected)
[2021-11-05] MEDS: LITHIUM CARBONATE 450 MG TABLET.ER PO SCH ×2 (10:38→21:11)
[2021-11-05] MEDS: ARIPiprazole 10 MG TABLET PO SCH (10:38)
[2021-11-05] MEDS: PRENATAL VITAMINS W/ FOLIC ACID TABLET (FP) PO SCH (10:38)
[2021-11-05] MEDS: VITAMIN B COMPLEX W/C COMBO TABLET (FP) PO SCH (10:39)
[2021-11-05] MEDS: NICOTINE 10 MG CARTRIDGE (INHALER) IH PRN ×2 (10:40→18:37)
[2021-11-05] MEDS: MAGNESIUM HYDROX 2400MG/30ML ORAL SUSPENSION 30 ML CUP PO PRN (14:47)
[2021-11-05] MEDS: IBUPROFEN 400 MG TABLET (FP) PO PRN (18:37)
[2021-11-05] MEDS: THIAMINE HCL 100 MG TABLET (FP) PO SCH (21:11)
[2021-11-05] MEDS: OLANZapine 7.5 MG TABLET PO SCH (21:11)
[2021-11-05] MEDS: traZODone HCL 50 MG TABLET (FP) PO SCH (21:11)
[2021-11-06] MEDS ORDERED: methaDONE HCL 10 MG TABLET ONE (03:11)
[2021-11-06] MEDS ORDERED: methaDONE HCL 40 MG DISPERSABLE TABLET ONE (03:11)
[2021-11-06] MEDS: methaDONE 40 MG, methaDONE 20 MG PO SCH (06:05)
[2021-11-06] MEDS: GABAPENTIN 400 MG CAPSULE PO SCH ×3 (06:05→21:11)
[2021-11-06] MEDS: PRENATAL VITAMINS W/ FOLIC ACID TABLET (FP) PO SCH (10:51)
[2021-11-06] MEDS: ARIPiprazole 10 MG TABLET PO SCH (10:51)
[2021-11-06] MEDS: VITAMIN B COMPLEX W/C COMBO TABLET (FP) PO SCH (10:52)
[2021-11-06] MEDS: LITHIUM CARBONATE 450 MG TABLET.ER PO SCH ×2 (10:52→21:11)
[2021-11-06] MEDS: THIAMINE HCL 100 MG TABLET (FP) PO SCH (21:11)
[2021-11-06] MEDS: OLANZapine 7.5 MG TABLET PO SCH (21:11)
[2021-11-06] MEDS: traZODone HCL 50 MG TABLET (FP) PO SCH (21:11)
[2021-11-06] MEDS: NICOTINE 10 MG CARTRIDGE (INHALER) IH PRN (21:26)
[2021-11-07] MEDS ORDERED: methaDONE HCL 10 MG TABLET ONE (05:20)
[2021-11-07] MEDS ORDERED: methaDONE HCL 40 MG DISPERSABLE TABLET ONE (05:20)
[2021-11-07] MEDS: methaDONE 40 MG, methaDONE 20 MG PO SCH (06:14)
[2021-11-07] MEDS: GABAPENTIN 400 MG CAPSULE PO SCH ×3 (06:14→21:17)
[2021-11-07] MEDS: PRENATAL VITAMINS W/ FOLIC ACID TABLET (FP) PO SCH (10:42)
[2021-11-07] MEDS: ARIPiprazole 10 MG TABLET PO SCH (10:42)
[2021-11-07] MEDS: LITHIUM CARBONATE 450 MG TABLET.ER PO SCH ×2 (10:43→21:17)
[2021-11-07] MEDS: VITAMIN B COMPLEX W/C COMBO TABLET (FP) PO SCH (10:43)
[2021-11-07] MEDS: NICOTINE 10 MG CARTRIDGE (INHALER) IH PRN (20:04)
[2021-11-07] MEDS: OLANZapine 7.5 MG TABLET PO SCH (21:17)
[2021-11-07] MEDS: traZODone HCL 50 MG TABLET (FP) PO SCH (21:17)
[2021-11-07] MEDS: THIAMINE HCL 100 MG TABLET (FP) PO SCH (21:17)
[2021-11-08] MEDS ORDERED: methaDONE HCL 40 MG DISPERSABLE TABLET ONE (02:53)
[2021-11-08] MEDS ORDERED: methaDONE HCL 10 MG TABLET ONE (02:53)
[2021-11-08] MEDS: methaDONE 40 MG, methaDONE 20 MG PO SCH (06:13)
[2021-11-08] MEDS: GABAPENTIN 400 MG CAPSULE PO SCH ×3 (06:13→22:09)
[2021-11-08] MEDS: ARIPiprazole 10 MG TABLET PO SCH (10:24)
[2021-11-08] MEDS: LITHIUM CARBONATE 450 MG TABLET.ER PO SCH ×2 (10:24→22:08)
[2021-11-08] MEDS: PRENATAL VITAMINS W/ FOLIC ACID TABLET (FP) PO SCH (10:24)
[2021-11-08] MEDS: NICOTINE 10 MG CARTRIDGE (INHALER) IH PRN (10:25)
[2021-11-08] MEDS: VITAMIN B COMPLEX W/C COMBO TABLET (FP) PO SCH (10:25)
[2021-11-08] MEDS: OLANZapine 7.5 MG TABLET PO SCH (22:09)
[2021-11-08] MEDS: THIAMINE HCL 100 MG TABLET (FP) PO SCH (22:09)
[2021-11-08] MEDS: traZODone HCL 50 MG TABLET (FP) PO SCH (22:09)
[2021-11-09] MEDS ORDERED: methaDONE HCL 10 MG TABLET ONE (02:53)
[2021-11-09] MEDS ORDERED: methaDONE HCL 40 MG DISPERSABLE TABLET ONE (02:53)
[2021-11-09] MEDS: methaDONE 40 MG, methaDONE 20 MG PO SCH (06:08)
[2021-11-09] MEDS: GABAPENTIN 400 MG CAPSULE PO SCH ×3 (06:08→22:06)
[2021-11-09] MEDS ORDERED: ARIPiprazole 5 MG TABLET ONE (10:33)
[2021-11-09] MEDS: LITHIUM CARBONATE 450 MG TABLET.ER PO SCH ×2 (10:50→22:07)
[2021-11-09] MEDS: PRENATAL VITAMINS W/ FOLIC ACID TABLET (FP) PO SCH (10:50)
[2021-11-09] MEDS: ARIPiprazole 10 MG TABLET PO SCH (10:50)
[2021-11-09] MEDS: VITAMIN B COMPLEX W/C COMBO TABLET (FP) PO SCH (10:50)
[2021-11-09] MEDS: OLANZapine 7.5 MG TABLET PO SCH (22:07)
[2021-11-09] MEDS: THIAMINE HCL 100 MG TABLET (FP) PO SCH (22:07)
[2021-11-09] MEDS: traZODone HCL 50 MG TABLET (FP) PO SCH (22:07)
[2021-11-10] MEDS ORDERED: methaDONE HCL 10 MG TABLET ONE (05:08)
[2021-11-10] MEDS ORDERED: methaDONE HCL 40 MG DISPERSABLE TABLET ONE (05:08)
[2021-11-10] MEDS: methaDONE 40 MG, methaDONE 20 MG PO SCH (06:17)
[2021-11-10] MEDS: GABAPENTIN 400 MG CAPSULE PO SCH ×3 (06:17→21:21)
[2021-11-10] MEDS ORDERED: ARIPiprazole 5 MG TABLET ONE (08:50)
[2021-11-10] MEDS: PRENATAL VITAMINS W/ FOLIC ACID TABLET (FP) PO SCH (10:50)
[2021-11-10] MEDS: ARIPiprazole 10 MG TABLET PO SCH (10:50)
[2021-11-10] MEDS: LITHIUM CARBONATE 450 MG TABLET.ER PO SCH ×2 (10:51→21:21)
[2021-11-10] MEDS: NICOTINE 10 MG CARTRIDGE (INHALER) IH PRN ×2 (10:52→21:23)
[2021-11-10] MEDS: VITAMIN B COMPLEX W/C COMBO TABLET (FP) PO SCH (10:52)
[2021-11-10] MEDS: OLANZapine 7.5 MG TABLET PO SCH (21:21)
[2021-11-10] MEDS: THIAMINE HCL 100 MG TABLET (FP) PO SCH (21:21)
[2021-11-10] MEDS: traZODone HCL 50 MG TABLET (FP) PO SCH (21:21)
[2021-11-11] MEDS ORDERED: methaDONE HCL 40 MG DISPERSABLE TABLET ONE (03:58)
[2021-11-11] MEDS ORDERED: methaDONE HCL 10 MG TABLET ONE (03:58)
[2021-11-11] MEDS: methaDONE 40 MG, methaDONE 20 MG PO SCH (06:19)
[2021-11-11] MEDS: GABAPENTIN 400 MG CAPSULE PO SCH ×3 (06:19→21:32)
[2021-11-11] MEDS: ARIPiprazole 10 MG TABLET PO SCH (10:24)
[2021-11-11] MEDS: LITHIUM CARBONATE 450 MG TABLET.ER PO SCH ×2 (10:24→21:32)
[2021-11-11] MEDS: VITAMIN B COMPLEX W/C COMBO TABLET (FP) PO SCH (10:25)
[2021-11-11] MEDS: PRENATAL VITAMINS W/ FOLIC ACID TABLET (FP) PO SCH (10:25)
[2021-11-11] MEDS: traZODone HCL 50 MG TABLET (FP) PO SCH (21:31)
[2021-11-11] MEDS: OLANZapine 7.5 MG TABLET PO SCH (21:31)
[2021-11-11] MEDS: THIAMINE HCL 100 MG TABLET (FP) PO SCH (21:32)
[2021-11-12] MEDS ORDERED: methaDONE HCL 10 MG TABLET ONE (03:07)
[2021-11-12] MEDS ORDERED: methaDONE HCL 40 MG DISPERSABLE TABLET ONE (03:08)
[2021-11-12] MEDS: methaDONE 40 MG, methaDONE 20 MG PO SCH (05:55)
[2021-11-12] MEDS: GABAPENTIN 400 MG CAPSULE PO SCH ×3 (05:55→21:22)
[2021-11-12] MEDS: PRENATAL VITAMINS W/ FOLIC ACID TABLET (FP) PO SCH (10:36)
[2021-11-12] MEDS: ARIPiprazole 10 MG TABLET PO SCH (10:36)
[2021-11-12] MEDS: VITAMIN B COMPLEX W/C COMBO TABLET (FP) PO SCH (10:37)
[2021-11-12] MEDS: LITHIUM CARBONATE 450 MG TABLET.ER PO SCH ×2 (10:37→21:22)
[2021-11-12] MEDS: NICOTINE 10 MG CARTRIDGE (INHALER) IH PRN (13:25)
[2021-11-12] MEDS: traZODone HCL 50 MG TABLET (FP) PO SCH (21:22)
[2021-11-12] MEDS: THIAMINE HCL 100 MG TABLET (FP) PO SCH (21:22)
[2021-11-12] MEDS: OLANZapine 7.5 MG TABLET PO SCH (21:22)
[2021-11-13] MEDS ORDERED: methaDONE HCL 40 MG DISPERSABLE TABLET ONE (03:02)
[2021-11-13] MEDS ORDERED: methaDONE HCL 10 MG TABLET ONE (03:02)
[2021-11-13] MEDS: methaDONE 40 MG, methaDONE 20 MG PO SCH (06:18)
[2021-11-13] MEDS: GABAPENTIN 400 MG CAPSULE PO SCH ×3 (06:18→21:18)
[2021-11-13] MEDS: LITHIUM CARBONATE 450 MG TABLET.ER PO SCH ×2 (09:47→21:18)
[2021-11-13] MEDS: ARIPiprazole 10 MG TABLET PO SCH (09:47)
[2021-11-13] MEDS: PRENATAL VITAMINS W/ FOLIC ACID TABLET (FP) PO SCH (09:47)
[2021-11-13] MEDS: VITAMIN B COMPLEX W/C COMBO TABLET (FP) PO SCH (09:48)
[2021-11-13] MEDS: NICOTINE 10 MG CARTRIDGE (INHALER) IH PRN (10:30)
[2021-11-13] MEDS: cloNIDine HCL 0.1 MG TABLET PO PRN ×2 (13:19→21:18)
[2021-11-13] MEDS: OLANZapine 7.5 MG TABLET PO SCH (21:18)
[2021-11-13] MEDS: traZODone HCL 50 MG TABLET (FP) PO SCH (21:18)
[2021-11-13] MEDS: THIAMINE HCL 100 MG TABLET (FP) PO SCH (21:18)
[2021-11-14] MEDS ORDERED: methaDONE HCL 10 MG TABLET ONE (05:14)
[2021-11-14] MEDS ORDERED: methaDONE HCL 40 MG DISPERSABLE TABLET ONE (05:14)
[2021-11-14] MEDS: methaDONE 40 MG, methaDONE 20 MG PO SCH (05:49)
[2021-11-14] MEDS: GABAPENTIN 400 MG CAPSULE PO SCH ×3 (05:49→21:16)
[2021-11-14] MEDS: VITAMIN B COMPLEX W/C COMBO TABLET (FP) PO SCH (11:16)
[2021-11-14] MEDS: LITHIUM CARBONATE 450 MG TABLET.ER PO SCH ×2 (11:16→21:16)
[2021-11-14] MEDS: PRENATAL VITAMINS W/ FOLIC ACID TABLET (FP) PO SCH (11:16)
[2021-11-14] MEDS: ARIPiprazole 10 MG TABLET PO SCH (11:16)
[2021-11-14] MEDS: cloNIDine HCL 0.1 MG TABLET PO PRN (14:51)
[2021-11-14] MEDS: NICOTINE 10 MG CARTRIDGE (INHALER) IH PRN (19:13)
[2021-11-14] MEDS: THIAMINE HCL 100 MG TABLET (FP) PO SCH (21:16)
[2021-11-14] MEDS: traZODone HCL 50 MG TABLET (FP) PO SCH (21:16)
[2021-11-14] MEDS: OLANZapine 7.5 MG TABLET PO SCH (21:16)
[2021-11-15] MEDS ORDERED: methaDONE HCL 40 MG DISPERSABLE TABLET ONE (04:05)
[2021-11-15] MEDS ORDERED: methaDONE HCL 10 MG TABLET ONE (04:05)
[2021-11-15] MEDS: methaDONE 40 MG, methaDONE 20 MG PO SCH (06:12)
[2021-11-15] MEDS: GABAPENTIN 400 MG CAPSULE PO SCH ×3 (06:12→22:52)
[2021-11-15] MEDS: NICOTINE 10 MG CARTRIDGE (INHALER) IH PRN ×2 (07:08→22:54)
[2021-11-15] MEDS: cloNIDine HCL 0.1 MG TABLET PO PRN (09:59)
[2021-11-15] MEDS: ARIPiprazole 10 MG TABLET PO SCH (09:59)
[2021-11-15] MEDS: LITHIUM CARBONATE 450 MG TABLET.ER PO SCH ×2 (09:59→22:52)
[2021-11-15] MEDS: PRENATAL VITAMINS W/ FOLIC ACID TABLET (FP) PO SCH (09:59)
[2021-11-15] MEDS: VITAMIN B COMPLEX W/C COMBO TABLET (FP) PO SCH (10:00)
[2021-11-15] MEDS: traZODone HCL 50 MG TABLET (FP) PO SCH (22:52)
[2021-11-15] MEDS: OLANZapine 7.5 MG TABLET PO SCH (22:52)
[2021-11-15] MEDS: THIAMINE HCL 100 MG TABLET (FP) PO SCH (22:53)
[2021-11-16] MEDS ORDERED: methaDONE HCL 40 MG DISPERSABLE TABLET ONE (03:27)
[2021-11-16] MEDS ORDERED: methaDONE HCL 10 MG TABLET ONE (03:27)
[2021-11-16] MEDS: methaDONE 40 MG, methaDONE 20 MG PO SCH (06:04)
[2021-11-16] MEDS: GABAPENTIN 400 MG CAPSULE PO SCH ×3 (06:04→21:39)
[2021-11-16] MEDS: ARIPiprazole 10 MG TABLET PO SCH (10:57)
[2021-11-16] MEDS: PRENATAL VITAMINS W/ FOLIC ACID TABLET (FP) PO SCH (10:57)
[2021-11-16] MEDS: LITHIUM CARBONATE 450 MG TABLET.ER PO SCH ×2 (10:59→21:39)
[2021-11-16] MEDS: VITAMIN B COMPLEX W/C COMBO TABLET (FP) PO SCH (10:59)
[2021-11-16] MEDS: OLANZapine 7.5 MG TABLET PO SCH (21:39)
[2021-11-16] MEDS: traZODone HCL 50 MG TABLET (FP) PO SCH (21:39)
[2021-11-16] MEDS: THIAMINE HCL 100 MG TABLET (FP) PO SCH (21:39)
[2021-11-17] MEDS ORDERED: methaDONE HCL 40 MG DISPERSABLE TABLET ONE (02:55)
[2021-11-17] MEDS ORDERED: methaDONE HCL 10 MG TABLET ONE (02:55)
[2021-11-17] MEDS: methaDONE 40 MG, methaDONE 20 MG PO SCH (06:11)
[2021-11-17] MEDS: GABAPENTIN 400 MG CAPSULE PO SCH ×3 (06:11→21:15)
[2021-11-17] MEDS: PRENATAL VITAMINS W/ FOLIC ACID TABLET (FP) PO SCH (10:51)
[2021-11-17] MEDS: LITHIUM CARBONATE 450 MG TABLET.ER PO SCH ×2 (10:51→21:15)
[2021-11-17] MEDS: ARIPiprazole 10 MG TABLET PO SCH (10:51)
[2021-11-17] MEDS: VITAMIN B COMPLEX W/C COMBO TABLET (FP) PO SCH (10:53)
[2021-11-17] MEDS: NICOTINE 10 MG CARTRIDGE (INHALER) IH PRN (17:41)
[2021-11-17] MEDS: traZODone HCL 50 MG TABLET (FP) PO SCH (21:15)
[2021-11-17] MEDS: cloNIDine HCL 0.1 MG TABLET PO PRN (21:15)
[2021-11-17] MEDS: THIAMINE HCL 100 MG TABLET (FP) PO SCH (21:15)
[2021-11-17] MEDS: OLANZapine 7.5 MG TABLET PO SCH (21:16)
[2021-11-18] MEDS ORDERED: methaDONE HCL 10 MG TABLET ONE (03:13)
[2021-11-18] MEDS ORDERED: methaDONE HCL 40 MG DISPERSABLE TABLET ONE (03:13)
[2021-11-18] MEDS: GABAPENTIN 400 MG CAPSULE PO SCH ×3 (06:05→21:31)
[2021-11-18] MEDS: methaDONE 40 MG, methaDONE 20 MG PO SCH (06:05)
[2021-11-18] MEDS: PRENATAL VITAMINS W/ FOLIC ACID TABLET (FP) PO SCH (10:15)
[2021-11-18] MEDS: ARIPiprazole 10 MG TABLET PO SCH (10:15)
[2021-11-18] MEDS: VITAMIN B COMPLEX W/C COMBO TABLET (FP) PO SCH (10:16)
[2021-11-18] MEDS: LITHIUM CARBONATE 450 MG TABLET.ER PO SCH ×2 (10:16→21:31)
[2021-11-18] MEDS: NICOTINE 10 MG CARTRIDGE (INHALER) IH PRN (15:38)
[2021-11-18] MEDS: OLANZapine 7.5 MG TABLET PO SCH (21:30)
[2021-11-18] MEDS: traZODone HCL 50 MG TABLET (FP) PO SCH (21:32)
[2021-11-18] MEDS: THIAMINE HCL 100 MG TABLET (FP) PO SCH (21:32)
[2021-11-19] MEDS ORDERED: methaDONE HCL 10 MG TABLET ONE (05:11)
[2021-11-19] MEDS ORDERED: methaDONE HCL 40 MG DISPERSABLE TABLET ONE (05:11)
[2021-11-19] MEDS: methaDONE 40 MG, methaDONE 20 MG PO SCH (05:59)
[2021-11-19] MEDS: GABAPENTIN 400 MG CAPSULE PO SCH ×3 (05:59→21:14)
[2021-11-19] MEDS: NICOTINE 10 MG CARTRIDGE (INHALER) IH PRN ×2 (06:12→18:04)
[2021-11-19] MEDS: PRENATAL VITAMINS W/ FOLIC ACID TABLET (FP) PO SCH (10:14)
[2021-11-19] MEDS: ARIPiprazole 10 MG TABLET PO SCH (10:14)
[2021-11-19] MEDS: LITHIUM CARBONATE 450 MG TABLET.ER PO SCH ×2 (10:14→21:14)
[2021-11-19] MEDS: VITAMIN B COMPLEX W/C COMBO TABLET (FP) PO SCH (10:15)
[2021-11-19] MEDS: CLINDAMYCIN HCL 150 MG CAPSULE (FP) PO SCH ×2 (11:54→18:04)
[2021-11-19] MEDS: OLANZapine 7.5 MG TABLET PO SCH (21:13)
[2021-11-19] MEDS: traZODone HCL 50 MG TABLET (FP) PO SCH (21:14)
[2021-11-19] MEDS: THIAMINE HCL 100 MG TABLET (FP) PO SCH (21:14)
[2021-11-20] MEDS: CLINDAMYCIN HCL 150 MG CAPSULE (FP) PO SCH ×5 (01:13→23:59)
[2021-11-20] MEDS ORDERED: methaDONE HCL 10 MG TABLET ONE (03:15)
[2021-11-20] MEDS ORDERED: methaDONE HCL 40 MG DISPERSABLE TABLET ONE (03:15)
[2021-11-20] MEDS: methaDONE 40 MG, methaDONE 20 MG PO SCH (05:55)
[2021-11-20] MEDS: GABAPENTIN 400 MG CAPSULE PO SCH ×3 (05:55→21:27)
[2021-11-20] MEDS: cloNIDine HCL 0.1 MG TABLET PO PRN ×2 (06:38→10:20)
[2021-11-20] MEDS: VITAMIN B COMPLEX W/C COMBO TABLET (FP) PO SCH (10:20)
[2021-11-20] MEDS: LITHIUM CARBONATE 450 MG TABLET.ER PO SCH ×2 (10:20→21:27)
[2021-11-20] MEDS: PRENATAL VITAMINS W/ FOLIC ACID TABLET (FP) PO SCH (10:20)
[2021-11-20] MEDS: ARIPiprazole 10 MG TABLET PO SCH (10:20)
[2021-11-20] MEDS: NICOTINE 10 MG CARTRIDGE (INHALER) IH PRN (18:10)
[2021-11-20] MEDS: THIAMINE HCL 100 MG TABLET (FP) PO SCH (21:27)
[2021-11-20] MEDS: OLANZapine 7.5 MG TABLET PO SCH (21:27)
[2021-11-20] MEDS: traZODone HCL 50 MG TABLET (FP) PO SCH (21:27)
[2021-11-21] MEDS ORDERED: methaDONE HCL 10 MG TABLET ONE (05:58)
[2021-11-21] MEDS ORDERED: methaDONE HCL 40 MG DISPERSABLE TABLET ONE (05:58)
[2021-11-21] MEDS: methaDONE 40 MG, methaDONE 20 MG PO SCH (05:59)
[2021-11-21] MEDS: GABAPENTIN 400 MG CAPSULE PO SCH ×3 (05:59→21:21)
[2021-11-21] MEDS: CLINDAMYCIN HCL 150 MG CAPSULE (FP) PO SCH ×4 (05:59→23:17)
[2021-11-21] MEDS: NICOTINE 10 MG CARTRIDGE (INHALER) IH PRN (10:48)
[2021-11-21] MEDS: PRENATAL VITAMINS W/ FOLIC ACID TABLET (FP) PO SCH (10:48)
[2021-11-21] MEDS: LITHIUM CARBONATE 450 MG TABLET.ER PO SCH ×2 (10:48→21:22)
[2021-11-21] MEDS: ARIPiprazole 10 MG TABLET PO SCH (10:48)
[2021-11-21] MEDS: VITAMIN B COMPLEX W/C COMBO TABLET (FP) PO SCH (10:48)
[2021-11-21] MEDS: traZODone HCL 50 MG TABLET (FP) PO SCH (21:20)
[2021-11-21] MEDS: THIAMINE HCL 100 MG TABLET (FP) PO SCH (21:21)
[2021-11-21] MEDS: OLANZapine 7.5 MG TABLET PO SCH (21:21)
[2021-11-22] MEDS ORDERED: methaDONE HCL 10 MG TABLET ONE (02:40)
[2021-11-22] MEDS ORDERED: methaDONE HCL 40 MG DISPERSABLE TABLET ONE (02:40)
[2021-11-22] MEDS: GABAPENTIN 400 MG CAPSULE PO SCH ×3 (05:56→22:04)
[2021-11-22] MEDS: CLINDAMYCIN HCL 150 MG CAPSULE (FP) PO SCH ×4 (05:56→23:56)
[2021-11-22] MEDS: methaDONE 40 MG, methaDONE 20 MG PO SCH (05:56)
[2021-11-22] MEDS: LITHIUM CARBONATE 450 MG TABLET.ER PO SCH ×2 (10:24→22:04)
[2021-11-22] MEDS: PRENATAL VITAMINS W/ FOLIC ACID TABLET (FP) PO SCH (10:24)
[2021-11-22] MEDS: ARIPiprazole 10 MG TABLET PO SCH (10:24)
[2021-11-22] MEDS: VITAMIN B COMPLEX W/C COMBO TABLET (FP) PO SCH (10:25)
[2021-11-22] MEDS: traZODone HCL 50 MG TABLET (FP) PO SCH (22:03)
[2021-11-22] MEDS: cloNIDine HCL 0.1 MG TABLET PO PRN (22:03)
[2021-11-22] MEDS: OLANZapine 7.5 MG TABLET PO SCH (22:04)
[2021-11-22] MEDS: THIAMINE HCL 100 MG TABLET (FP) PO SCH (22:04)
[2021-11-23] MEDS ORDERED: methaDONE HCL 40 MG DISPERSABLE TABLET ONE (06:06)
[2021-11-23] MEDS ORDERED: methaDONE HCL 10 MG TABLET ONE (06:06)
[2021-11-23] MEDS: GABAPENTIN 400 MG CAPSULE PO SCH ×3 (06:07→21:57)
[2021-11-23] MEDS: cloNIDine HCL 0.1 MG TABLET PO PRN ×2 (06:08→21:58)
[2021-11-23] MEDS: CLINDAMYCIN HCL 150 MG CAPSULE (FP) PO SCH ×4 (06:08→23:01)
[2021-11-23] MEDS: methaDONE 40 MG, methaDONE 20 MG PO SCH (06:09)
[2021-11-23] MEDS: LITHIUM CARBONATE 450 MG TABLET.ER PO SCH ×2 (11:04→21:57)
[2021-11-23] MEDS: VITAMIN B COMPLEX W/C COMBO TABLET (FP) PO SCH (11:04)
[2021-11-23] MEDS: PRENATAL VITAMINS W/ FOLIC ACID TABLET (FP) PO SCH (11:04)
[2021-11-23] MEDS: ARIPiprazole 10 MG TABLET PO SCH (11:04)
[2021-11-23] MEDS: NICOTINE 10 MG CARTRIDGE (INHALER) IH PRN ×2 (11:05→19:18)
[2021-11-23] MEDS: traZODone HCL 50 MG TABLET (FP) PO SCH (21:57)
[2021-11-23] MEDS: THIAMINE HCL 100 MG TABLET (FP) PO SCH (21:57)
[2021-11-23] MEDS: OLANZapine 7.5 MG TABLET PO SCH (21:58)
[2021-11-24] MEDS ORDERED: methaDONE HCL 40 MG DISPERSABLE TABLET ONE (04:04)
[2021-11-24] MEDS ORDERED: methaDONE HCL 10 MG TABLET ONE (04:04)
[2021-11-24] MEDS: CLINDAMYCIN HCL 150 MG CAPSULE (FP) PO SCH ×3 (06:20→18:00)
[2021-11-24] MEDS: GABAPENTIN 400 MG CAPSULE PO SCH ×3 (06:20→21:17)
[2021-11-24] MEDS: methaDONE 40 MG, methaDONE 20 MG PO SCH (06:20)
[2021-11-24] MEDS: NICOTINE 10 MG CARTRIDGE (INHALER) IH PRN (06:34)
[2021-11-24] MEDS: ARIPiprazole 10 MG TABLET PO SCH (10:43)
[2021-11-24] MEDS: PRENATAL VITAMINS W/ FOLIC ACID TABLET (FP) PO SCH (10:43)
[2021-11-24] MEDS: VITAMIN B COMPLEX W/C COMBO TABLET (FP) PO SCH (10:44)
[2021-11-24] MEDS: LITHIUM CARBONATE 450 MG TABLET.ER PO SCH ×2 (10:44→21:17)
[2021-11-24] MEDS: IBUPROFEN 400 MG TABLET (FP) PO PRN (12:50)
[2021-11-24] MEDS: OLANZapine 7.5 MG TABLET PO SCH (21:16)
[2021-11-24] MEDS: THIAMINE HCL 100 MG TABLET (FP) PO SCH (21:16)
[2021-11-24] MEDS: traZODone HCL 50 MG TABLET (FP) PO SCH (21:19)
[2021-11-24] MEDS: cloNIDine HCL 0.1 MG TABLET PO PRN (21:31)
[2021-11-25] MEDS ORDERED: methaDONE HCL 40 MG DISPERSABLE TABLET ONE (03:31)
[2021-11-25] MEDS ORDERED: methaDONE HCL 10 MG TABLET ONE (03:31)
[2021-11-25] MEDS: CLINDAMYCIN HCL 150 MG CAPSULE (FP) PO SCH ×5 (05:55→23:14)
[2021-11-25] MEDS: methaDONE 40 MG, methaDONE 20 MG PO SCH (05:57)
[2021-11-25] MEDS: GABAPENTIN 400 MG CAPSULE PO SCH ×3 (05:57→21:15)
[2021-11-25] MEDS: LITHIUM CARBONATE 450 MG TABLET.ER PO SCH ×2 (10:16→21:16)
[2021-11-25] MEDS: PRENATAL VITAMINS W/ FOLIC ACID TABLET (FP) PO SCH (10:16)
[2021-11-25] MEDS: VITAMIN B COMPLEX W/C COMBO TABLET (FP) PO SCH (10:17)
[2021-11-25] MEDS: ARIPiprazole 10 MG TABLET PO SCH (10:17)
[2021-11-25] MEDS: traZODone HCL 50 MG TABLET (FP) PO SCH (21:15)
[2021-11-25] MEDS: THIAMINE HCL 100 MG TABLET (FP) PO SCH (21:16)
[2021-11-25] MEDS: OLANZapine 7.5 MG TABLET PO SCH (21:16)
[2021-11-25] MEDS: cloNIDine HCL 0.1 MG TABLET PO PRN (21:16)
[2021-11-26] MEDS ORDERED: methaDONE HCL 40 MG DISPERSABLE TABLET ONE (02:47)
[2021-11-26] MEDS ORDERED: methaDONE HCL 10 MG TABLET ONE (02:47)
[2021-11-26] MEDS: CLINDAMYCIN HCL 150 MG CAPSULE (FP) PO SCH ×3 (06:05→17:51)
[2021-11-26] MEDS: methaDONE 40 MG, methaDONE 20 MG PO SCH (06:05)
[2021-11-26] MEDS: GABAPENTIN 400 MG CAPSULE PO SCH ×3 (06:05→21:10)
[2021-11-26] MEDS: cloNIDine HCL 0.1 MG TABLET PO PRN (06:05)
[2021-11-26] MEDS: ARIPiprazole 10 MG TABLET PO SCH (10:24)
[2021-11-26] MEDS: PRENATAL VITAMINS W/ FOLIC ACID TABLET (FP) PO SCH (10:24)
[2021-11-26] MEDS: LITHIUM CARBONATE 450 MG TABLET.ER PO SCH ×2 (10:25→21:10)
[2021-11-26] MEDS: VITAMIN B COMPLEX W/C COMBO TABLET (FP) PO SCH (10:25)
[2021-11-26] MEDS: NICOTINE 10 MG CARTRIDGE (INHALER) IH PRN (10:37)
[2021-11-26] MEDS: traZODone HCL 50 MG TABLET (FP) PO SCH (21:10)
[2021-11-26] MEDS: THIAMINE HCL 100 MG TABLET (FP) PO SCH (21:11)
[2021-11-26] MEDS: OLANZapine 7.5 MG TABLET PO SCH (21:11)
[2021-11-27] MEDS: CLINDAMYCIN HCL 150 MG CAPSULE (FP) PO SCH ×5 (00:16→23:11)
[2021-11-27] MEDS ORDERED: methaDONE HCL 10 MG TABLET ONE (02:54)
[2021-11-27] MEDS ORDERED: methaDONE HCL 40 MG DISPERSABLE TABLET ONE (02:54)
[2021-11-27] MEDS: methaDONE 40 MG, methaDONE 20 MG PO SCH (06:01)
[2021-11-27] MEDS: cloNIDine HCL 0.1 MG TABLET PO PRN (06:01)
[2021-11-27] MEDS: GABAPENTIN 400 MG CAPSULE PO SCH ×3 (06:02→21:10)
[2021-11-27] MEDS: NICOTINE 10 MG CARTRIDGE (INHALER) IH PRN (08:39)
[2021-11-27] MEDS: PRENATAL VITAMINS W/ FOLIC ACID TABLET (FP) PO SCH (10:21)
[2021-11-27] MEDS: VITAMIN B COMPLEX W/C COMBO TABLET (FP) PO SCH (10:22)
[2021-11-27] MEDS: LITHIUM CARBONATE 450 MG TABLET.ER PO SCH ×2 (10:22→21:10)
[2021-11-27] MEDS: ARIPiprazole 10 MG TABLET PO SCH (10:22)
[2021-11-27] MEDS: OLANZapine 7.5 MG TABLET PO SCH (21:10)
[2021-11-27] MEDS: THIAMINE HCL 100 MG TABLET (FP) PO SCH (21:10)
[2021-11-27] MEDS: traZODone HCL 50 MG TABLET (FP) PO SCH (21:10)
[2021-11-28] MEDS: CLINDAMYCIN HCL 150 MG CAPSULE (FP) PO SCH ×4 (05:59→23:57)
[2021-11-28] MEDS: GABAPENTIN 400 MG CAPSULE PO SCH ×3 (05:59→22:01)
[2021-11-28] MEDS: cloNIDine HCL 0.1 MG TABLET PO PRN ×2 (05:59→22:05)
[2021-11-28] MEDS ORDERED: methaDONE HCL 40 MG DISPERSABLE TABLET ONE (06:01)
[2021-11-28] MEDS: methaDONE 40 MG, methaDONE 20 MG PO SCH (06:01)
[2021-11-28] MEDS ORDERED: methaDONE HCL 10 MG TABLET ONE (06:01)
[2021-11-28] MEDS: VITAMIN B COMPLEX W/C COMBO TABLET (FP) PO SCH (09:42)
[2021-11-28] MEDS: ARIPiprazole 10 MG TABLET PO SCH (09:43)
[2021-11-28] MEDS: PRENATAL VITAMINS W/ FOLIC ACID TABLET (FP) PO SCH (09:43)
[2021-11-28] MEDS: LITHIUM CARBONATE 450 MG TABLET.ER PO SCH ×2 (09:43→22:01)
[2021-11-28] MEDS: NICOTINE 10 MG CARTRIDGE (INHALER) IH PRN (14:48)
[2021-11-28] MEDS: traZODone HCL 50 MG TABLET (FP) PO SCH (22:01)
[2021-11-28] MEDS: OLANZapine 7.5 MG TABLET PO SCH (22:02)
[2021-11-28] MEDS: THIAMINE HCL 100 MG TABLET (FP) PO SCH (22:02)
[2021-11-29] MEDS ORDERED: methaDONE HCL 40 MG DISPERSABLE TABLET ONE (04:09)
[2021-11-29] MEDS ORDERED: methaDONE HCL 10 MG TABLET ONE (04:09)
[2021-11-29] MEDS: CLINDAMYCIN HCL 150 MG CAPSULE (FP) PO SCH (06:10)
[2021-11-29] MEDS: methaDONE 40 MG, methaDONE 20 MG PO SCH (06:11)
[2021-11-29] MEDS: GABAPENTIN 400 MG CAPSULE PO SCH ×3 (06:11→21:21)
[2021-11-29] MEDS: LITHIUM CARBONATE 450 MG TABLET.ER PO SCH ×2 (11:20→21:22)
[2021-11-29] MEDS: ARIPiprazole 10 MG TABLET PO SCH (11:20)
[2021-11-29] MEDS: NICOTINE 10 MG CARTRIDGE (INHALER) IH PRN (11:20)
[2021-11-29] MEDS: VITAMIN B COMPLEX W/C COMBO TABLET (FP) PO SCH (11:21)
[2021-11-29] MEDS: PRENATAL VITAMINS W/ FOLIC ACID TABLET (FP) PO SCH (11:21)
[2021-11-29] MEDS: OLANZapine 7.5 MG TABLET PO SCH (21:20)
[2021-11-29] MEDS: traZODone HCL 50 MG TABLET (FP) PO SCH (21:20)
[2021-11-29] MEDS: THIAMINE HCL 100 MG TABLET (FP) PO SCH (21:21)
[2021-11-30] MEDS ORDERED: methaDONE HCL 10 MG TABLET ONE (04:56)
[2021-11-30] MEDS ORDERED: methaDONE HCL 40 MG DISPERSABLE TABLET ONE (04:56)
[2021-11-30] MEDS: methaDONE 40 MG, methaDONE 20 MG PO SCH (06:34)
[2021-11-30] MEDS: GABAPENTIN 400 MG CAPSULE PO SCH ×3 (06:34→22:09)
[2021-11-30] MEDS: cloNIDine HCL 0.1 MG TABLET PO PRN (06:36)
[2021-11-30] MEDS: ARIPiprazole 10 MG TABLET PO SCH (10:33)
[2021-11-30] MEDS: PRENATAL VITAMINS W/ FOLIC ACID TABLET (FP) PO SCH (10:33)
[2021-11-30] MEDS: VITAMIN B COMPLEX W/C COMBO TABLET (FP) PO SCH (10:34)
[2021-11-30] MEDS: LITHIUM CARBONATE 450 MG TABLET.ER PO SCH ×2 (10:34→22:10)
[2021-11-30] MEDS: THIAMINE HCL 100 MG TABLET (FP) PO SCH (22:09)
[2021-11-30] MEDS: traZODone HCL 50 MG TABLET (FP) PO SCH (22:09)
[2021-11-30] MEDS: OLANZapine 7.5 MG TABLET PO SCH (22:09)
[2021-12-01] MEDS ORDERED: methaDONE HCL 40 MG DISPERSABLE TABLET ONE (02:59)
[2021-12-01] MEDS ORDERED: methaDONE HCL 10 MG TABLET ONE (02:59)
[2021-12-01] MEDS: GABAPENTIN 400 MG CAPSULE PO SCH ×3 (06:02→21:33)
[2021-12-01] MEDS: methaDONE 40 MG, methaDONE 20 MG PO SCH (06:03)
[2021-12-01] MEDS: NICOTINE 10 MG CARTRIDGE (INHALER) IH PRN (07:10)
[2021-12-01] MEDS: cloNIDine HCL 0.1 MG TABLET PO PRN (07:10)
[2021-12-01] MEDS: PRENATAL VITAMINS W/ FOLIC ACID TABLET (FP) PO SCH (10:37)
[2021-12-01] MEDS: VITAMIN B COMPLEX W/C COMBO TABLET (FP) PO SCH (10:38)
[2021-12-01] MEDS: ARIPiprazole 10 MG TABLET PO SCH (10:38)
[2021-12-01] MEDS: LITHIUM CARBONATE 450 MG TABLET.ER PO SCH ×2 (10:38→21:33)
[2021-12-01] MEDS: traZODone HCL 50 MG TABLET (FP) PO SCH (21:33)
[2021-12-01] MEDS: OLANZapine 7.5 MG TABLET PO SCH (21:33)
[2021-12-01] MEDS: THIAMINE HCL 100 MG TABLET (FP) PO SCH (21:33)
[2021-12-02] MEDS ORDERED: methaDONE HCL 40 MG DISPERSABLE TABLET ONE (02:54)
[2021-12-02] MEDS ORDERED: methaDONE HCL 10 MG TABLET ONE (02:54)
[2021-12-02] MEDS: cloNIDine HCL 0.1 MG TABLET PO PRN ×2 (06:00→21:48)
[2021-12-02] MEDS: methaDONE 40 MG, methaDONE 20 MG PO SCH (06:01)
[2021-12-02] MEDS: GABAPENTIN 400 MG CAPSULE PO SCH ×3 (06:01→21:48)
[2021-12-02] MEDS: NICOTINE 10 MG CARTRIDGE (INHALER) IH PRN (08:53)
[2021-12-02] MEDS: PRENATAL VITAMINS W/ FOLIC ACID TABLET (FP) PO SCH (10:58)
[2021-12-02] MEDS: ARIPiprazole 10 MG TABLET PO SCH (10:58)
[2021-12-02] MEDS: LITHIUM CARBONATE 450 MG TABLET.ER PO SCH ×2 (10:59→21:48)
[2021-12-02] MEDS: VITAMIN B COMPLEX W/C COMBO TABLET (FP) PO SCH (10:59)
[2021-12-02] MEDS: THIAMINE HCL 100 MG TABLET (FP) PO SCH (21:48)
[2021-12-02] MEDS: traZODone HCL 50 MG TABLET (FP) PO SCH (21:48)
[2021-12-02] MEDS: OLANZapine 7.5 MG TABLET PO SCH (21:48)
[2021-12-03] MEDS ORDERED: methaDONE HCL 10 MG TABLET ONE (02:55)
[2021-12-03] MEDS ORDERED: methaDONE HCL 40 MG DISPERSABLE TABLET ONE (02:55)
[2021-12-03] MEDS: methaDONE 40 MG, methaDONE 20 MG PO SCH (06:04)
[2021-12-03] MEDS: GABAPENTIN 400 MG CAPSULE PO SCH (06:06)
[2021-12-03 07:34] VITALS: BP 146/98; PULSE 75; TEMP 97
[2021-12-03] MEDS: ARIPiprazole 10 MG TABLET PO SCH (09:19)
[2021-12-03] MEDS: PRENATAL VITAMINS W/ FOLIC ACID TABLET (FP) PO SCH (09:19)
[2021-12-03] MEDS: VITAMIN B COMPLEX W/C COMBO TABLET (FP) PO SCH (09:20)
[2021-12-03] MEDS: LITHIUM CARBONATE 450 MG TABLET.ER PO SCH (09:20)
== END 2021-12-03 09:28 | disposition home or self-care (01) | DRG 772 ==
LOC: YASAS 17:14 → Y3W 18:39 → Y5N 10-31 12:56
PROVIDERS: ADMIT Allergy & Immunology; ATTEND Allergy & Immunology
PROC: HZ42ZZZ Group Counseling for Substance Abuse Treatment, Cognitive-Behavioral (ICD-10-PCS; principal; 2021-10-23)
DX: F11.20 Opioid dependence, uncomplicated (principal); F17.210 Nicotine dependence, cigarettes, uncomplicated; F25.9 Schizoaffective disorder, unspecified; F19.282 Other psychoactive substance dependence with psychoactive substance-induced sleep disorder; R03.0 Elevated blood-pressure reading, without diagnosis of hypertension; J02.9 Acute pharyngitis, unspecified; B95.62 Methicillin resistant Staphylococcus aureus infection as the cause of diseases classified elsewhere; M54.59 Other low back pain; G89.29 Other chronic pain; Z91.013 Allergy to seafood; Z56.0 Unemployment, unspecified
CPT/HCPCS: 36415; 80048; 80053; 80178; 81003; 82962; 84703; 85027; 86780; 87070; 87077; C9803; J0735; U0003; U0005

== ENCOUNTER 2022-06-18 18:44 | Inpatient (IN) | payer OTHER ==
[2022-06-18 22:34] VITALS: BMI 43.9
[2022-06-18] MEDS ORDERED: NALOXONE HCL (KLOXXADO) 8 MG SPRAY NS PRN (23:06)
[2022-06-18] MEDS ORDERED: BISMUTH SUBSALICYLATE 524 MG/30 ML PO PRN (23:06)
[2022-06-18] MEDS ORDERED: MAGNESIUM HYDROX 2400MG/30ML ORAL SUSPENSION 30 ML CUP PO PRN (23:06)
[2022-06-18] MEDS ORDERED: ONDANSETRON *ODT* 4 MG TABLET SL PRN (23:06)
[2022-06-18] MEDS ORDERED: methaDONE HCL 10 MG TABLET (FOR DETOX USE ONLY) PO ONE (23:06)
[2022-06-18] MEDS ORDERED: ACETAMINOPHEN 325 MG TABLET (FP) PO PRN (23:06)
[2022-06-18] MEDS ORDERED: DICYCLOMINE HCL 10 MG CAPSULE PO PRN (23:06)
[2022-06-18] MEDS ORDERED: MAGNESIUM CITRATE 300 ML BOTTLE PO PRN (23:06)
[2022-06-18] MEDS ORDERED: BENZOCAINE/MENTHOL (CHLORASEPTIC ) LOZENGE MM PRN (23:06)
[2022-06-18] MEDS ORDERED: LOPERAMIDE HCL 2 MG CAPSULE PO PRN (23:06)
[2022-06-18] MEDS ORDERED: MAG HYDROX/AL HYDROX/SIMETH 30 ML UNIT-DOSE CUP PO PRN (23:06)
[2022-06-18] MEDS ORDERED: chlordiazePOXIDE HCL 25 MG CAPSULE PO PRN (23:06)
[2022-06-18] MEDS ORDERED: IBUPROFEN 600 MG TABLET (FP) PO PRN (23:06)
[2022-06-18] MEDS ORDERED: IBUPROFEN 400 MG TABLET (FP) PO PRN (23:06)
[2022-06-19] MEDS: chlordiazePOXIDE HCL 25 MG CAPSULE PO SCH ×5 (00:27→23:47)
[2022-06-19] MEDS: ACETAMINOPHEN 325 MG TABLET (FP) PO PRN ×2 (00:30→10:09)
[2022-06-19] MEDS: cloNIDine HCL 0.1 MG TABLET PO PRN ×2 (00:34→10:16)
[2022-06-19] MEDS: PRENATAL VITAMINS W/ FOLIC ACID TABLET (FP) PO SCH (10:09)
[2022-06-19] MEDS: NICOTINE 10 MG CARTRIDGE (INHALER) IH PRN (10:19)
[2022-06-19] MEDS: NICOTINE 14 MG/24 HOURS TOPICAL PATCH TD SCH (10:50)
[2022-06-19 12:32] LABS: HEMATOCRIT 39.5 % (32.4-45.2); HEMOGLOBIN 12.2 GM/dL (10.7-15.3); MCH 25.3 pg (25.7-33.7); MCHC 30.9 g/dl (32.0-36.0); MEAN PLT VOLUME 9.8 fl (7.5-11.1); PLATELET COUNT 231 10^3/uL (134-434); RBC 4.82 M/mm3 (3.60-5.2); RDW 17.2 % (11.6-15.6); WHITE BLOOD COUNT 5.5 K/mm3 (4.0-10.0)
[2022-06-19 13:25] LABS: ALBUMIN 3.4 g/dl (3.4-5.0); BILIRUBIN,TOTAL 0.4 mg/dL (0.2-1); BLOOD UREA NITROGEN 6.7 mg/dL (7-18); CALCIUM 8.7 mg/dL (8.5-10.1); CREATININE 0.6 mg/dL (0.55-1.3); TOT PROT 6.1 g/dl (6.4-8.2)
[2022-06-19] MEDS: OLANZapine 7.5 MG TABLET PO SCH ×2 (14:16→23:47)
[2022-06-19] MEDS: traZODone HCL 100 MG TABLET (FP) PO SCH (23:46)
[2022-06-19] MEDS: MELATONIN 5 MG TABLETS PO SCH (23:46)
[2022-06-19] MEDS: THIAMINE HCL 100 MG TABLET (FP) PO SCH (23:46)
[2022-06-20] MEDS: chlordiazePOXIDE HCL 25 MG CAPSULE PO SCH ×4 (06:22→22:01)
[2022-06-20] MEDS ORDERED: methaDONE HCL 10 MG TABLET (FOR DETOX USE ONLY) PO ONE (10:00)
[2022-06-20] MEDS: OLANZapine 7.5 MG TABLET PO SCH ×2 (10:34→22:00)
[2022-06-20] MEDS: PRENATAL VITAMINS W/ FOLIC ACID TABLET (FP) PO SCH (10:34)
[2022-06-20] MEDS: NICOTINE 14 MG/24 HOURS TOPICAL PATCH TD SCH (10:38)
[2022-06-20] MEDS: traZODone HCL 100 MG TABLET (FP) PO SCH (22:00)
[2022-06-20] MEDS: THIAMINE HCL 100 MG TABLET (FP) PO SCH (22:00)
[2022-06-20] MEDS: MELATONIN 5 MG TABLETS PO SCH (22:00)
[2022-06-21] MEDS ORDERED: chlordiazePOXIDE HCL 10 MG CAPSULE PO PRN
[2022-06-21] MEDS: chlordiazePOXIDE HCL 10 MG CAPSULE PO SCH ×4 (06:56→22:00)
[2022-06-21] MEDS: PRENATAL VITAMINS W/ FOLIC ACID TABLET (FP) PO SCH (10:37)
[2022-06-21] MEDS: OLANZapine 7.5 MG TABLET PO SCH ×2 (10:37→22:00)
[2022-06-21] MEDS: METHOCARBAMOL 500 MG TABLET PO PRN ×2 (10:42→22:00)
[2022-06-21] MEDS: NICOTINE 14 MG/24 HOURS TOPICAL PATCH TD SCH (10:54)
[2022-06-21] MEDS: traZODone HCL 100 MG TABLET (FP) PO SCH (22:00)
[2022-06-21] MEDS: THIAMINE HCL 100 MG TABLET (FP) PO SCH (22:00)
[2022-06-21] MEDS: MELATONIN 5 MG TABLETS PO SCH (22:00)
[2022-06-22] MEDS: chlordiazePOXIDE HCL 10 MG CAPSULE PO SCH ×2 (05:54→17:34)
[2022-06-22] MEDS ORDERED: methaDONE HCL 10 MG TABLET (FOR DETOX USE ONLY) PO ONE (10:00)
[2022-06-22] MEDS: PRENATAL VITAMINS W/ FOLIC ACID TABLET (FP) PO SCH (10:01)
[2022-06-22] MEDS: OLANZapine 7.5 MG TABLET PO SCH ×2 (10:01→22:14)
[2022-06-22] MEDS: NICOTINE 14 MG/24 HOURS TOPICAL PATCH TD SCH (10:02)
[2022-06-22] MEDS: NICOTINE 10 MG CARTRIDGE (INHALER) IH PRN (10:04)
[2022-06-22] MEDS: GABAPENTIN 300 MG CAPSULE PO SCH ×2 (13:29→22:14)
[2022-06-22] MEDS: THIAMINE HCL 100 MG TABLET (FP) PO SCH (22:14)
[2022-06-22] MEDS: traZODone HCL 100 MG TABLET (FP) PO SCH (22:14)
[2022-06-22] MEDS: MELATONIN 5 MG TABLETS PO SCH (22:14)
[2022-06-23] MEDS: ACETAMINOPHEN 325 MG TABLET (FP) PO PRN (03:49)
[2022-06-23] MEDS: METHOCARBAMOL 500 MG TABLET PO PRN (03:49)
[2022-06-23] MEDS ORDERED: chlordiazePOXIDE HCL 10 MG CAPSULE PO ONE (05:00)
[2022-06-23] MEDS: GABAPENTIN 300 MG CAPSULE PO SCH ×3 (06:00→22:04)
[2022-06-23] MEDS: PRENATAL VITAMINS W/ FOLIC ACID TABLET (FP) PO SCH (10:33)
[2022-06-23] MEDS: OLANZapine 7.5 MG TABLET PO SCH ×2 (10:34→22:04)
[2022-06-23] MEDS: NICOTINE 14 MG/24 HOURS TOPICAL PATCH TD SCH (10:35)
[2022-06-23] MEDS ORDERED: cloNIDine HCL 0.1 MG TABLET PO ONE (11:00)
[2022-06-23] MEDS ORDERED: hydrOXYzine PAMOATE 25 MG CAPSULE (FP) PO PRN (15:20)
[2022-06-23] MEDS: traZODone HCL 100 MG TABLET (FP) PO SCH (22:04)
[2022-06-23] MEDS: THIAMINE HCL 100 MG TABLET (FP) PO SCH (22:04)
[2022-06-23] MEDS: MELATONIN 5 MG TABLETS PO SCH (22:04)
[2022-06-24] MEDS: METHOCARBAMOL 500 MG TABLET PO PRN (06:03)
[2022-06-24] MEDS: GABAPENTIN 300 MG CAPSULE PO SCH ×2 (06:03→14:42)
[2022-06-24 06:58] VITALS: BP 128/85; PULSE 77; RESP 18; TEMP 97.5
[2022-06-24] MEDS: NICOTINE 14 MG/24 HOURS TOPICAL PATCH TD SCH (10:45)
[2022-06-24] MEDS: PRENATAL VITAMINS W/ FOLIC ACID TABLET (FP) PO SCH (10:45)
[2022-06-24] MEDS: OLANZapine 7.5 MG TABLET PO SCH (10:45)
== END 2022-06-24 15:33 | disposition home or self-care (01) | DRG 773 ==
LOC: YASAS 18:44 → Y3N 22:55
PROVIDERS: ADMIT Allergy & Immunology; ATTEND Surgery
PROC: HZ2ZZZZ Detoxification Services for Substance Abuse Treatment (ICD-10-PCS; principal; 2022-06-19)
DX: F11.23 Opioid dependence with withdrawal (principal); F10.230 Alcohol dependence with withdrawal, uncomplicated; F17.210 Nicotine dependence, cigarettes, uncomplicated; F25.9 Schizoaffective disorder, unspecified; F31.9 Bipolar disorder, unspecified; F43.10 Post-traumatic stress disorder, unspecified; F41.9 Anxiety disorder, unspecified; G47.00 Insomnia, unspecified; M54.50 Low back pain, unspecified; G89.29 Other chronic pain; Z56.0 Unemployment, unspecified; Z59.00 Homelessness unspecified
CPT/HCPCS: 36415; 80053; 81025; 85027; 86780; 93005; 93010; C9803-CS; U0003; U0005